=== PATIENT | female | born 1945 | race Caucasian/White ===

== ENCOUNTER → 2016-11-28 | Outpatient (CLI) | payer OTHER, MEDICARE ==
[~2016-11-28] MED LIST: ACET-1325 PO; ASPI-461 PO; CHOL100027 PO; DIAZ5TAB3 PO; LOSA25TA18 PO; LPT40 PO; MECL1TAB42 PO; OMEP20TA PO
[2016-11-28 12:31] LABS: ALT/SGPT 25 U/L (12-78); BLOOD UREA NITROGEN 17 mg/dl (7-18); BUN/CREATININE RATIO 22.8 (10-20); CALCIUM 8.9 mg/dl (8.5-10.1); CARBON DIOXIDE 23 mmol/L (21-32); CHLORIDE 112 mmol/L (98-107); CHOLESTEROL 166 mg/dl (0-200); CREATININE 0.75 mg/dl (0.60-1.20); GLUCOSE 92 mg/dl (70-99); POTASSIUM 3.9 mmol/L (3.5-5.1); SODIUM 145 mmol/L (136-145); TRIGLYCERIDES 181 mg/dl (0-150); VERY LOW DENSITY LIPOPROT CALC 36 mg/dl
[2016-11-28 12:40] LABS: ESTIMATED AVERAGE GLUCOSE 114 mg/dl; HA1C FLAG Normal (Normal)
[2016-11-28 12:41] LABS: ALB/GLOB RATIO 1.1 (0.9-2); ALKALINE PHOSPHATASE 55 U/L (45-117); AST/SGOT 18 U/L (15-37); HDL CHOLESTEROL 55 mg/dl; LDL CHOLESTEROL CALCULATED 75 mg/dl
== END | disposition home or self-care (01) ==
LOC: C.LAB1850 10:34
PROVIDERS: ATTEND Family Medicine
DX: I10 Essential (primary) hypertension (principal); E78.00 Pure hypercholesterolemia, unspecified; R73.01 Impaired fasting glucose; E55.9 Vitamin D deficiency, unspecified

== ENCOUNTER → 2017-05-30 | Outpatient (CLI) | payer OTHER, MEDICARE ==
[2017-05-30 12:42] LABS: ALT/SGPT 27 U/L (12-78); AST/SGOT 17 U/L (15-37); BLOOD UREA NITROGEN 13 mg/dl (7-18); BUN/CREATININE RATIO 17.3 (10-20); CALCIUM 8.5 mg/dl (8.5-10.1); CARBON DIOXIDE 24 mmol/L (21-32); CHLORIDE 113 mmol/L (98-107); CHOLESTEROL 132 mg/dl (0-200); CREATININE 0.73 mg/dl (0.60-1.20); GLUCOSE 89 mg/dl (70-99); POTASSIUM 3.9 mmol/L (3.5-5.1); SODIUM 142 mmol/L (136-145)
[2017-05-30 12:44] LABS: ALB/GLOB RATIO 0.9 (0.9-2); ALKALINE PHOSPHATASE 60 U/L (45-117); CHOLESTEROL/HDL RATIO 2.9; HDL CHOLESTEROL 46 mg/dl; LDL CHOLESTEROL CALCULATED 42 mg/dl; TRIGLYCERIDES 218 mg/dl (0-150); VERY LOW DENSITY LIPOPROT CALC 44 mg/dl
[2017-05-30 13:49] LABS: ESTIMATED AVERAGE GLUCOSE 123 mg/dl; HA1C FLAG Normal (Normal)
== END | disposition home or self-care (01) ==
LOC: C.LAB1850 11:13
PROVIDERS: ATTEND Family Medicine
DX: I10 Essential (primary) hypertension (principal); E78.00 Pure hypercholesterolemia, unspecified; R73.01 Impaired fasting glucose; E55.9 Vitamin D deficiency, unspecified

== ENCOUNTER → 2017-10-25 | Outpatient (CLI) | payer OTHER, MEDICARE ==
--- NOTE | 2017-10-26 15:33 | MAMMOGRAPHY REPORT ---
BILATERAL DIGITAL SCREENING MAMMOGRAM TOMOSYNTHESIS WITH CAD: 10/25/2017 CLINICAL HISTORY: Routine screening. TECHNIQUE: Breast tomosynthesis in addition to standard 2D mammography was performed. Current study was also evaluated with a Computer Aided Detection (CAD) system. COMPARISON: Comparison is made to exams dated: 10/02/2016 mammogram, 10/26/2015 mammogram, 5 mammogram - [facility], 12/19/2013 mammogram, 10/21/2012 mammogram, and 10/17/2012 mammogram. BREAST COMPOSITION: There are scattered areas of fibroglandular density in both breasts. FINDINGS: No suspicious masses, calcifications, or areas of architectural distortion are noted in ei ther breast. There has been no significant interval change compared to prior exams. Small circumscri bed benign-appearing masses are again noted bilaterally, with corresponding benign cysts seen on prio r ultrasound exam. IMPRESSION: ACR BI-RADS CATEGORY 2: BENIGN There is no mammographic evidence of malignancy. A 1 year screening mammogram is recommended. The pa tient will receive written notification of the results. Approximately 10% of breast cancers are not detected with mammography. A negative mammographic report should not delay biopsy if a clinically suggestive mass is present. Amanda Decker M.D. ah/:10/25/2017 16:00:02 Tractor Trailer Driver: Leslie ORTIZ(R)(M), [facility] letter sent: Normal 1/2 BI-RADS Code: ACR BI-RADS Category 2: Benign
== END | disposition home or self-care (01) ==
LOC: C.MAMM 13:33
PROVIDERS: ATTEND Family Medicine
DX: Z12.31 Encounter for screening mammogram for malignant neoplasm of breast (principal)

== ENCOUNTER → 2018-01-21 | Outpatient (CLI) | payer OTHER, MEDICARE ==
[2018-01-21 13:00] LABS: ALT/SGPT 25 U/L (12-78); BLOOD UREA NITROGEN 15 mg/dl (7-18); CALCIUM 8.7 mg/dl (8.5-10.1); CARBON DIOXIDE 23 mmol/L (21-32); CHOLESTEROL 136 mg/dl (0-200); GLUCOSE 95 mg/dl (70-99); HEMOGLOBIN A1C 5.7 % (4.5-5.6); POTASSIUM 4.3 mmol/L (3.5-5.1); SODIUM 141 mmol/L (136-145)
[2018-01-21 13:04] LABS: LDL CHOLESTEROL CALCULATED 62 mg/dl
== END | disposition home or self-care (01) ==
LOC: C.LAB1850 10:53
PROVIDERS: ATTEND Family Medicine
DX: I10 Essential (primary) hypertension (principal); E78.00 Pure hypercholesterolemia, unspecified; R73.01 Impaired fasting glucose

== ENCOUNTER → 2018-01-29 | Outpatient (CLI) | payer OTHER, MEDICARE ==
[2018-01-29 15:33] LABS: BASO % 0.4 %; BASO ABS # 0.03 K/uL (0-0.2); EOS % 1.3 %; HEMATOCRIT 40.4 % (37-47); HEMOGLOBIN 13.7 g/dL (12.0-16.0); IG# 0.01 K/uL (0.00-0.02); LYMPH % 29.5 %; LYMPH ABS # 2.25 K/uL (1.2-3.4); MEAN CELL VOLUME 91.2 fL (80-100); MEAN CORPUSCULAR HEMOGLOBIN 30.9 pg (25-34); MEAN CORPUSCULAR HGB CONC 33.9 g/dl (32-36); MEAN PLATELET VOLUME 11.3 fL (7.4-10.4); MONO ABS # 0.69 K/uL (0.11-0.59); NEUT % 59.7 %; NEUT ABS # 4.55 K/uL (1.4-6.5); PLATELET COUNT 233 K/uL (130-400); RED CELL DISTRIBUTION WIDTH CV 13.9 % (11.5-14.5); RED CELL DISTRIBUTION WIDTH SD 46.4 fL (36.4-46.3); WHITE BLOOD COUNT 7.63 K/uL (4.8-10.8)
== END | disposition home or self-care (01) ==
LOC: C.LAB1850 13:34
PROVIDERS: ATTEND Family Medicine
DX: H81.09 Meniere's disease, unspecified ear (principal)

== ENCOUNTER 2022-11-13 09:48 | Observation (INO) ==
--- NOTE | 2022-10-16 12:06 | PAT Medication Instructions ---
Medication Instructions Date of Service October 16, 2022 Home Medications Medication Instructions Recorded meclizine 25 mg tablet 25 mg PO TID PRN dizziness #30 tabs 07/01/21 diazepam 5 mg tablet 5 mg PO .every 12 hours PRN 01/23/22 vertigo #14 tabs acetazolamide 125 mg tablet 125 mg PO ONCE PRN cholecalciferol (vitamin D3) 25 mcg (1,000 unit) capsule 1,000 units PO QAM omeprazole 20 mg capsule,delayed release 20 mg PO QAM meclizine 25 mg tablet 25 mg PO TID PRN diazepam 5 mg tablet 5 mg PO .every 12 hours PRN atorvastatin 10 mg tablet 10 mg PO QPM calcium carbonate 200 mg calcium (500 mg) chewable tablet (Tums) 200 mg PO QID PRN ibuprofen 200 mg tablet 400 mg PO Q6H PRN acetaminophen 500 mg tablet 1,000 mg PO Q8H PRN minoxidil 2 % topical solution (Rogaine) 1 ml topical UD ASK your surgeon for instructions ibuprofen 200 mg tablet 400 mg PO Q6H PRN STOP taking 24 hours before surgery minoxidil 2 % topical solution (Rogaine) 1 ml topical UD DO NOT take the morning of surgery acetazolamide 125 mg tablet 125 mg PO ONCE PRN cholecalciferol (vitamin D3) 25 mcg (1,000 unit) capsule 1,000 units PO QAM calcium carbonate 200 mg calcium (500 mg) chewable tablet (Tums) 200 mg PO QID PRN Take morning of surgery With a small sip of water, OTHERWISE NOTHING TO EAT OR DRINK AFTER MIDNIGHT: omeprazole 20 mg capsule,delayed release 20 mg PO QAM meclizine 25 mg tablet 25 mg PO TID PRN(if needed) diazepam 5 mg tablet 5 mg PO .every 12 hours PRN(if needed) acetaminophen 500 mg tablet 1,000 mg PO Q8H PRN(if needed) Take evening before surgery meclizine 25 mg tablet 25 mg PO TID PRN(if needed) diazepam 5 mg tablet 5 mg PO .every 12 hours PRN(if needed) atorvastatin 10 mg tablet 10 mg PO QPM calcium carbonate 200 mg calcium (500 mg) chewable tablet (Tums) 200 mg PO QID PRN(if needed) acetaminophen 500 mg tablet 1,000 mg PO Q8H PRN(if needed) Other Notes If you have any questions please call us at [phone] or [phone] or [phone] or [phone]
--- NOTE | 2022-10-17 11:10 | Anesthesiology Consultation ---
Date of Service October 17, 2022 Assessment & Plan (1) Encounter for pre-operative examination: Chart Review Chart Review: Acceptable Risk for Surgery and Patient seen in Pre Admission Testing -Due to age- patient is NOT an Outpatient Joint candidate Per PAT appt on 10/17/22, patient denies any recent travel or large group activities. Pt is vaccinated for Covid. Will leave to surgeon's discretion if preop Covid testing needed. Educated on importance of using Covid precautions one week prior to surgery Teaching & Discussion Pre-Anesthesia Teaching/Discussion Notes: Instructed NPO after midnight before surgery,except medications with 15 cc of water. Medication instructions provided according to the [facility] guidelines. History Surgery Operation Date: 11/13/22 08:50 Proposed Procedures p Right Total Knee Arthroplasty - Cleveland Mondragon DO Height/Weight Height: 5 ft 6 in Weight: 91 kg Allergies Allergy/AdvReac Type Severity Reaction Status Date / Time No Known Drug Allergies Allergy Verified 10/16/22 14:11 Medications Home Medications Medication Instructions Recorded Confirmed Last Taken acetazolamide 125 mg tablet 125 mg PO ONCE PRN Vertigo 04/14/19 10/16/22 Unknown cholecalciferol (vitamin D3) 25 1,000 units PO QAM 04/14/19 10/16/22 10/08/22 mcg (1,000 unit) capsule meclizine 25 mg tablet 25 mg PO TID PRN dizziness #30 tabs 07/01/21 10/16/22 Unknown diazepam 5 mg tablet 5 mg PO .every 12 hours PRN 01/23/22 10/16/22 Unknown vertigo #14 tabs atorvastatin 10 mg tablet 10 mg PO QPM 10/04/22 10/16/22 10/08/22 calcium carbonate 200 mg calcium 200 mg PO QID PRN gerd 10/04/22 10/16/22 Unknown (500 mg) chewable tablet (Tums) ibuprofen 200 mg tablet 400 mg PO Q6H PRN Pain 10/04/22 10/16/22 Unknown acetaminophen 500 mg tablet 1,000 mg PO Q8H PRN Pain 10/16/22 10/16/22 Unknown minoxidil 2 % topical solution 1 ml topical UD 10/16/22 10/16/22 Unknown (Rogaine) omeprazole 20 mg capsule,delayed 20 mg PO QAM #30 caps 10/16/22 10/16/22 Unknown release Past Medical History Medical History Degenerative arthritis of cervical spine GERD (gastroesophageal reflux disease) Well controlled and stable Hiatal hernia History of hypertension Resolved per pt since retiring Hypercholesterolemia Impaired fasting glucose A1C 5.7 on June 2022 Meniere disease WITH VERTIGO- NO CURRENT ISSUES USUALLY TRIGGERED BY CAFFEINE Osteopenia Sensorineural hearing loss (SNHL) of both ears No hearing aids at this time Exercise / Class Metabolic Activity III < 4 Walking/Shop/Light housework (one flight of stairs- no chest pain, minimal SOB ) Past Family History Family History Other No family history of adverse response to anesthesia Denies family history of Colon cancer Ovarian cancer Prostate cancer Myocardial infarction Breast cancer Past Surgical History Surgical History History of cataract surgery RT/LEFT History of colonoscopy History of esophagogastroduodenoscopy (EGD) History of loop electrosurgical excision procedure (LEEP) of cervix History of surgical removal of pilonidal cyst x 2 History of tonsillectomy History of tooth extraction PONV (postoperative nausea and vomiting) Past Anesthesia History No Hx of Anesthesia Complications (with exception to postoperative nausea) and No Family Hx of Anesthesia Complications History of PONV History of PONV (Nausea- no vomiting - tolerated EGD and dental extraction without issues ) and Hx of Motion Sickness Social History Smoking Status: Former smoker tobacco type: cigarettes Smoking End Date: 50+ YEARS AGO Hx Alcohol Use: Yes Alcohol type: wine and hard liquor alcohol intake frequency: a few times a week substance use type: does not use Review of Systems Sleeps alone- unknown snoring Patient denies chest pain, shortness of breath at rest,cough, wheezing, palpitations. No hx of seizures, stroke, CT. No hx of blood clots or blood transfusions Physical Exam Vital Signs VITALS BP 144/84 P 67 TEMP 98.2 SP02 97% RESP 16 Constitutional no acute distress ENMT Mouth: + small oral opening; no TMJ clicking Thyromental Distance: < 3.5 Finger Breadths (3.5) Mallampati Class: III Missing molars Permanent bridges to bottom side teeth bilaterally Neck + limited neck extension (mild to moderate ) Respiratory normal respiratory effort; no respiratory distress Auscultation: lungs clear to auscultation bilaterally; no wheezes Cardiovascular Rate/Rhythm: regular rate and regular rhythm Heart Sounds: no murmur Vessels: no carotid bruit Musculoskeletal Spine: + pain with cervical ROM Extremities: extremities normal to inspection Psychiatric Orientation: alert Lab Results Anesthesia Preop Results Results Anesthesia Widget: WBC 7.18 K/ul (4.8-10.8) 10/17/22 Hgb 12.0 g/dl (12.0-16.0) 10/17/22 Hct 36.7 % (34.1-44.9) 10/17/22 Plt 227 K/uL (130-400) 10/17/22 Na 139 mmol/L (136-145) 10/17/22 K 4.2 mmol/L (3.5-5.1) 10/17/22 Cl 108 mmol/L (98-107) H 10/17/22 CO2 25 mmol/L (21-32) 10/17/22 BUN 15 mg/dl (6-23) 10/17/22 Creat 0.64 mg/dl (0.6-1.2) 10/17/22 Glucose Level 95 mg/dl (70-99(Fasting)) 10/17/22 PT 10.5 Seconds (9.0-12.0) 10/17/22 PTT 25.4 Seconds (21.0-31.0) 10/17/22 INR 1.0 (0.9-1.1) 10/17/22 Blood Type A Positive 10/17/22 Antibody Screen NEGATIVE 10/17/22 Testing Electrocardiogram Date: 10/17/22 Findings: + NSR @ (67bpm ) Left ventricular hypertrophy with QRS widening Possible septal infarct Possible old lateral infarct Chronic T wave inversion in inferior and anterolateral leads When compared to EKG from December 03, 2014no significant changes from prior cardio (Had negative stress ECHO 12/03/14 for ischemia) Chest X-Ray Date: 10/17/22 FINDINGS: PA and lateral chest radiographs are compared to study dated 12/02/2014. The heart is mildly enlarged noting atherosclerotic calcification of the thoracic aorta. The pulmonary vasculature is noncongested. Chronic interstitial thickening is similar to previous. The lungs and pleural spaces are clear. There is no pneumothorax. The skeletal structures are osteopenic. The bony thorax appears intact. IMPRESSION: Mild cardiomegaly with no active disease in the chest. COVID-19 Risk Screen Screening Information COVID-19 Screen Date: 10/17/22 Exposure 21 Days Family/Household +COVID Last 21 Days: No Exposure 10 Days Any COVID Exposure Last 10 Days: No Symptoms Last 10 Days Experienced COVID Sx Last 10 Days: No + COVID 0-90 Days COVID + in Last 0-90 Days: No Risk Plan COVID Risk Plan: No Risk Identified Patient Education COVID Preop Screening Education Complete: Yes
[~2022-11-13 09:48] MED LIST changes: -ACET-1325 PO; +ACETAMINOPHEN 500 MG TAB PO SCH; -ASPI-461 PO; +BUPIVACAINE 0.25% 30 ML VIAL ONE; +BUPIVACAINE 0.5 % 5 MG/1 ML PF 10ML VIAL ONE; -CHOL100027 PO; +DEXAMETHASONE SOD INJ 4 MG/ML VIAL ONE; -DIAZ5TAB3 PO; +EPINEPHrine INJ 1 MG/ML AMP ONE; +FAMOTIDINE 20 MG TAB PO SCH; +GABAPENTIN 300 MG CAP PO SCH; -LOSA25TA18 PO; -LPT40 PO; +LR 500ML BOLUS, THEN 15ML/HR IV SCH; +LR 60ML/HR IV SCH; -MECL1TAB42 PO; -OMEP20TA PO; +ORTHO JOINT MIX INFIL SCH; +TRANEXAMIC ACID 1,000 MG **IV Intra-op IV SCH; +TRANEXAMIC ACID 1,000 MG **IV Pre-op IV SCH; +ceFAZolin 2000MG 2,000 MG/15 ML SYR IV SCH; +dexAMETHasone 4 MG TAB PO SCH
--- NOTE | 2022-11-13 10:37 | History & Physical Bridge Note ---
Date of Service November 13, 2022 History & Physical Bridge Note I have examined the patient, reviewed the History & Physical and in the interval since the performance of the History & Physical I have noted the following changes of clinical significance: no changes noted
[2022-11-13] MEDS ORDERED: ORTHO JOINT ANESTHETIC ONE (11:36)
[2022-11-13] MEDS ORDERED: fentaNYL citrate 100 MCG/2 ML VIAL ONE (11:38)
[2022-11-13] MEDS ORDERED: MIDAZOLAM HCL 1 MG/ML 2ML VIAL ONE (11:38)
[2022-11-13] MEDS ORDERED: PROPOFOL IV EMULSION 10 MG/ML 20 ML VIAL IV ONE ×2 (11:40)
[2022-11-13] MEDS ORDERED: ATROPINE SULFATE 0.1 MG/ML 10ML SYR IV PRN (12:34)
[2022-11-13] MEDS ORDERED: ePHEDrine sulfate 50 MG/ML AMP IV PRN (12:34)
[2022-11-13] MEDS ORDERED: fentaNYL citrate 100 MCG/2 ML VIAL IV PRN (12:34)
[2022-11-13] MEDS ORDERED: ONDANSETRON INJ 2 MG/ML 2 ML VIAL IV PRN ×2 (12:34→16:17)
[2022-11-13] MEDS ORDERED: ONDANSETRON INJ 2 MG/ML 2 ML VIAL ONE (12:37)
[2022-11-13] MEDS ORDERED: METOPROLOL TARTRATE 1 MG/ML VIAL IV ONE (12:46)
[2022-11-13] MEDS ORDERED: LIDOCAINE 2% MPF LOCAL 5 ML VIAL INFIL ONE (12:58)
--- NOTE | 2022-11-13 13:51 | Operative Report ---
PG Post Operative Report Pre & Post Diagnosis Operation Date: 11/13/22 12:30 Pre-Op Diagnosis: Osteoarthritis of Right Knee Post-Op Diagnosis: Osteoarthritis of Right Knee I identified the patient and participated in the time-out.: Yes Procedure Operation Date: 11/13/22 12:30 Actual Procedures p Right Total Knee Arthroplasty(Right) - Cleveland Mondragon DO Surgeon Cleveland Mondragon DO Help Desk Specialist Cleveland Arambula PA-C Estimated Blood Loss 30 Findings Consistent with Post-Op Diagnosis Specimens Right femoral and tibial bone Description of Procedure Implants used: I used a Jackie Persona total knee arthroplasty system with a size 8 standard femur, E tibia, 31 oval patella, and a size 10 medial congruent polyethylene bearing. All components were cemented in place with Biomet cement. Anuradha arrived [facility] for the above procedure. She was seen in the preoperative holding area and the operative extremity was identified and signed. She was given a preoperative antibiotic, TXA, a spinal anesthetic and an adductor nerve block. She was taken back to the operating room and laid on the table in supine position. She was given basic sedation. The operative knee was then prepped and draped in sterile fashion. A timeout was done, and the patient and the operative extremity was properly identified. A midline incision was made directly over the patella. Dissection was taken down to the extensor mechanism. A midvastus arthrotomy was used. The medial retinaculum was released and the fat pad was mostly excised. The knee was flexed and the ACL, PCL, and meniscus were removed. A drill was sent down the center of the femoral canal followed by an intramedullary rachel. Off that rachel a distal femoral cutting block was placed. 9 mm was resected off the distal femur at 5 of valgus. A posterior referencing AP sizing guide was then placed on the distal femur. The femur measured to be a size 8. 2 drill holes were placed in 3 of external rotation. A 4-in-1 cutting block was then impacted into place. Anterior, posterior, and chamfer cuts were then made. The proximal tibia was then exposed. An external tibial alignment guide was placed. A tibial cut guide was then anchored in place and the proximal tibia was then resected. The posterior aspect of the knee was then opened up and any additional meniscus fragments and osteophytes were removed. The tibia measured to be a size 8. The tibial plate was then placed in the appropriate rotation and the tibia was drilled and punched. Trial components were then placed. I used a size 10 medial congruent polyethylene insert. The knee was brought through a full range of motion and felt to be stable. The peg holes for the femoral component were then drilled. The patella was then everted and 9 mm was resected off the posterior aspect of the patella. The patella measured to be a size 31 oval. 3 peg holes were then drilled. A trial patella was placed. The knee was once again brought through a full range of motion and felt to be stable. Trial components were then removed. The surrounding soft tissues were injected with 100 cc of an orthopedic pain control cocktail. All components were then cemented into place with Biomet cement. The final polyethylene insert was then snapped into place. Once cement was dry the tourniquet was deflated. Hemostasis was obtained. A dilute betadyne lavage was then done for 3 minutes. The joint was then irrigated with normal saline solution. The subvastus arthrotomy was then closed with #1 Vicryl suture. The skin was closed with 2-0 Vicryl, 3-0V lock suture, and lois. A soft compressive dressing was placed. She was then transferred to a hospital bed and taken to the postanesthesia care unit in stable condition. She tolerated the procedure well. Cleveland Arambula PA-C, was present for the entire procedure. He was critical for patient positioning, prepping, draping, retraction exposure, wound closure and application of sterile dressing. I attest to the content of the Intraoperative Record and any orders documented therein. Any exceptions are noted below.
--- NOTE | 2022-11-13 14:52 | Anesthesiology Progress Note ---
Date of Service November 13, 2022 Anesthesia Post Procedure Vital Signs Vital Signs: Temp Pulse Pulse Resp BP Pulse Ox O2 Del Method 11/13/22 14:35 62 17 117/73 93 Oxymask 11/13/22 14:25 65 17 104/65 88 L Oxymask 11/13/22 14:45 61 17 117/72 90 Oxymask 11/13/22 14:15 68 19 108/68 93 Oxymask 11/13/22 14:08 36.3 C L 92 H 18 115/62 92 Oxymask 11/13/22 10:26 36.7 C 83 18 169/98 H 96 Room Air O2 Flow Rate 11/13/22 14:35 5 11/13/22 14:25 6 11/13/22 14:45 5 11/13/22 14:15 6 11/13/22 14:08 6 11/13/22 10:26 Transfer of Care Handoff Completed per policy Notes Mental Status: alert / awake / arousable and participated in evaluation Patient Amnestic to Procedure: Yes Nausea / Vomiting: adequately controlled Pain: adequately controlled Airway Patency, RR, SpO2: stable & adequate BP & HR: stable & adequate Hydration State: stable & adequate Neuraxial Anesthesia: was administered and sensory block is resolving Anesthetic Complications: no major complications apparent and Pt Satisfied with anesthetic care
--- NOTE | 2022-11-13 14:59 | XRay Report ---
RIGHT KNEE 2 VIEWS History: Right total knee arthroplasty. Degenerative arthritis. Postop. FINDINGS: The patient is status post a right total knee arthroplasty. The hardware is intact. No frac ture or dislocation. Skin lois are in place. IMPRESSION: Right total knee arthroplasty. No evidence for hardware complication. ACT 112: Negative or not required by law. Electronically signed by: Liborio Handy M.D. 11/13/2022 2:58 PM
[2022-11-13] MEDS ORDERED: diazePAM 5 MG TABLET PO PRN (16:17)
[2022-11-13] MEDS ORDERED: MAGNESIUM HYDROXIDE SUSP 30 ML UDC PO PRN (16:17)
[2022-11-13] MEDS ORDERED: bisacodyL 10 MG SUPP PR PRN (16:17)
[2022-11-13] MEDS ORDERED: oxyCODONE HCL IR 5 MG TAB (IMMEDIATE RELEASE) PO PRN (16:17)
[2022-11-13] MEDS ORDERED: MECLIZINE HCL 25 MG TAB PO PRN (16:17)
[2022-11-13] MEDS ORDERED: MINOXIDIL TOP SCH (16:17)
[2022-11-13] MEDS ORDERED: METOCLOPRAMIDE HCL INJ 5 MG/ML 2 ML VIAL IV PRN (16:17)
[2022-11-13] MEDS ORDERED: SODIUM CHLORIDE 0.9% 1000ML 1,000 ML IV SCH (16:17)
[2022-11-13] MEDS ORDERED: NALOXONE HCL 0.4 MG/1 ML VIAL/CARP IV PRN (16:17)
[2022-11-13] MEDS ORDERED: HYDROmorphone INJ 0.5 MG/0.5 ML SYR IV PRN (16:17)
[2022-11-13] MEDS ORDERED: acetaZOLAMIDE 250 MG TAB PO PRN (16:29)
[2022-11-13] MEDS: KETOROLAC TROMETHAMINE 15 MG/ML VIAL IV SCH ×2 (16:59→23:01)
[2022-11-13] MEDS ORDERED: ATORVASTATIN 10 MG TAB PO SCH (21:00)
[2022-11-13] MEDS ORDERED: SENNA 8.6 MG TAB PO SCH (21:00)
[2022-11-13] MEDS: DOCUSATE SODIUM 100 MG CAP PO SCH (21:14)
[2022-11-13] MEDS: ACETAMINOPHEN 500 MG TAB PO SCH (21:19)
[2022-11-13] MEDS: ASPIRIN 81 MG ECTAB PO SCH (21:20)
[2022-11-13] MEDS: ceFAZolin 2000MG 2,000 MG/15 ML SYR IV SCH (21:20)
[2022-11-14] MEDS: ceFAZolin 2000MG 2,000 MG/15 ML SYR IV SCH (04:04)
[2022-11-14] MEDS: KETOROLAC TROMETHAMINE 15 MG/ML VIAL IV SCH (04:05)
[2022-11-14] MEDS: ACETAMINOPHEN 500 MG TAB PO SCH (05:41)
--- NOTE | 2022-11-14 07:12 | Orthopedic Progress Note ---
Date of Service November 14, 2022 Assessment & Plan (1) Status post right knee replacement: Overall she is doing very well. She is not having much pain in the right knee. She will be seen by physical therapy today for ambulation and range of motion exercises. She is on aspirin for DVT prophylaxis. She can be discharged home later today. She will follow-up with orthopedics in 2 weeks. Clovis Ling was seen and examined at bedside this morning. Overall she is doing very well. She is not having any pain in the right knee. She has been up and ambulating to the bathroom. She has no complaints.. Review of Systems All systems reviewed & are unremarkable except as noted in HPI & below. Physical Exam On physical examination of the right knee, her leg is out full extension. She has active dorsiflexion plantarflexion of her right ankle. Sensation is intact throughout.. Results & Data Results & Data Laboratory Results . Diagnostic Findings Postoperative x-rays of the right knee show the prosthesis to be in anatomic alignment without any evidence of fracture, desiccation, or loosening. PG Care Time/CCT Total # of Minutes Spent Total Time Spent with Patient: Total time spent is greater than 50% in coordination of care (as documented) at patient's floor/unit and/or counseling patient: Coding Level of Care Code 72307 Post Operative Follow-Up Diagnoses Status post right knee replacement Z96.651
--- NOTE | 2022-11-14 07:13 | Discharge Summary ---
Date of Service November 14, 2022 Principal Diagnosis Same as "Discharge Diagnosis" noted below under Discharge Instructions. Discharge Exam On physical examination of the right knee, her leg is out full extension. She has active dorsiflexion plantarflexion of her right ankle. Sensation is intact throughout.. Discharge Data Procedures Performed Operation Date: 11/13/22 12:30 Actual Procedures p Right Total Knee Arthroplasty(Right) - Cleveland Mondragon DO Ordered Studies 11/13/22 05:00 US - OR guided needle placemen Routine Hospital Course (1) Status post right knee replacement: On November 13, 2022 Anuradha arrived at [facility] and underwent a right knee replacement without complication. She had a spinal anesthetic. Postoperatively she was started on aspirin for DVT prophylaxis and transferred to the general orthopedic floors. Her hospital course was uneventful. On postop day #1, her vital signs were stable and her pain was well controlled. She was able to participate well with physical therapy doing ambulation and range of motion exercises. She was then discharged home. She will follow-up with orthopedics in 2 weeks. PG Care Time/CCT Total # of Minutes Spent Total Time Spent with Patient: Total time spent is greater than 50% in coordination of care (as documented) at patient's floor/unit and/or counseling patient: Discharge Plan Discharge Items Patient Disposition: Home - Home Health Services Reason For Visit: DJD Right Knee Discharge Diagnosis: Right knee replacement Activity: Per Instructions section Non-emergency contact: Surgeon Call non-emergency contact if: your wound has increased redness and your wound has increased drainage Follow-up/Referrals: Renee Becerra MD [Primary Care Provider] - Diet: Regular Addtl Attending Provider Instructions: Activity and Therapy Recommendations: * If you are using [facility] then therapy will be provided at your home until they feel you have accomplished all of your goals. * If you are using [facility] then Physical Therapy will be provided until they feel you are ready to start Outpatient Physical Therapy. * If you are not using home therapy then Outpatient Physical Therapy should start about 3-5 days from your day of surgery. Therapy will last about 6-10 weeks * It is important not to put a pillow under your knee when you are relaxing or sleeping. It is just as important to make sure you are getting your knee perfectly straight as it is to regain your knee bend. * You were shown a series of exercises in the hospital. Do these exercises three times each day including the exercises you were shown in physical therapy. * Get up and walk several times each day. For the first four weeks, try not to stand or walk for more than one hour at a time. If you do stand or walk for more than one hour, you will not hurt anything, but your leg will likely swell. * As you feel comfortable, you may change from the walker or crutches to a cane and then to independent walking. Medications: * Narcotic You will likely be sent home from the hospital with a prescription for the narcotic pain medication that worked best throughout your stay. * Aspirin Most patients will be required to take Aspirin 81mg twice a day for 6 weeks after surgery. This is obtained [id number] and a prescription is not necessary. * Other medications may be prescribed for specific circumstances. If you have any questions, please call the office at . * Resume previous home medications unless otherwise instructed TEDs/Elastic Stockings: The white elastic stockings help limit swelling and prevent blood clots from fo rming in your legs.~ The more you wear them, the more they work. Wear them for six weeks. Dressing Care: The dressing can be changed after physical therapy on postop day #1. Daily dry dressing changes for a few days, especially if the incision is still draining some. If the incision is not draining then you may leave the lois open to air. If there is a little bit of drainage or if the lois are getting stuck on your clothing then cover the incision with a dry dressing. The lois will be removed at your 2 week follow-up appointment. Showering: You may shower 5 days from the day of surgery as long as the incision is no longer draining. You may shower with the lois exposed. Let soapy water run over the lois and pat them dry. Do not scrub or soak the incision. Things To Watch For: * Drainage from the incision site that occurs more than one week after your surgery. * Increased redness at the incision site. * Fever above 102 degrees Fahrenheit. * Unusual chest pain or shortness of breath. * Call [facility] at with any of the above problems Follow-Up Visit: Follow-up with Dr. Mondragon's PA (Cleveland Arambula) 2-3 weeks after your day of surgery. He will remove your lois and answer any questions. If you have any additional questions or concerns, Dr Mondragon is usually in the office at the same time and will be available An appointment was probably scheduled when you signed-up for surgery in the office. If you have any questions call Office Instructions: More detailed instructions as well as Frequently Asked Questions were provided in a folder by our office when you signed-up for surgery. Please review these instructions when you get home. If you have any further questions or concerns, please feel free to call the office at [phone] Pending Studies at Discharge: No Stand-Alone Forms: My [facility] Medications and DC Order Prescriptions: New oxycodone-acetaminophen 5-325 mg tablet 1 tab PO Q6H PRN (Reason: pain) Qty: 30 0RF celecoxib [Celebrex] 200 mg capsule 200 mg PO BID Qty: 28 0RF Rx Instructions: Take 1 pill twice a day for 2 weeks after surgery aspirin [Adult Aspirin Regimen] 81 mg tablet,delayed release (DR/EC) 81 mg PO BID Qty: 84 0RF Continued diazepam 5 mg tablet 5 mg PO .every 12 hours PRN (Reason: vertigo ) Qty: 14 1RF acetazolamide 125 mg tablet 125 mg PO ONCE PRN (Reason: Vertigo) cholecalciferol (vitamin D3) 1,000 unit capsule 1,000 units PO QAM omeprazole 20 mg capsule,delayed release(DR/EC) 20 mg PO QAM Qty: 30 11RF meclizine 25 mg tablet 25 mg PO TID PRN (Reason: dizziness) Qty: 30 1RF acetaminophen 500 mg Tablet 1,000 mg PO Q8H PRN (Reason: Pain) minoxidil [Rogaine] 2 % Solution 1 ml TOPICAL UD atorvastatin 10 mg tablet 10 mg PO QPM calcium carbonate [Tums] 200 mg calcium (500 mg) Tablet,Chewable 200 mg PO QID PRN (Reason: gerd) Discontinued ibuprofen 200 mg Tablet 400 mg PO Q6H PRN (Reason: Pain) Discharge Orders: Discharge Order (Routine); Ordered 11/14/22 Ordered By: Cleveland Mondragon Admission Data Admit Date/Time: 11/13/22 14:12 Attending Provider: Cleveland Mondragon Admit Provider: Cleveland Mondragon Primary Care Provider: Renee Becerra
[2022-11-14] MEDS ORDERED: dexAMETHasone 4 MG TAB PO SCH (08:00)
[2022-11-14] MEDS: DOCUSATE SODIUM 100 MG CAP PO SCH (08:38)
[2022-11-14] MEDS: ASPIRIN 81 MG ECTAB PO SCH (08:38)
[2022-11-14] MEDS ORDERED: PANTOprazole 40 MG TAB PO SCH (09:00)
[2022-11-14] MEDS ORDERED: MULTIVITAMIN TAB PO SCH (09:00)
== END 2022-11-14 11:04 | disposition home health service (06) ==
LOC: ASU 09:48 → 3N 09:48

== ENCOUNTER 2023-03-12 05:21 | Observation (INO) ==
--- NOTE | 2023-03-01 13:45 | Anesthesiology Consultation ---
Date of Service March 01, 2023 Assessment & Plan (1) Encounter for pre-operative examination: - COVID screening: Per assessment on 03/01: No known COVID-19 positive contacts or current COVID-19 related symptoms. Travel screen negative. Patient vaccinated. At surgeon discretion if preop Covid testing being done. - Outpatient joint assessment: Pt currently scheduled for inpatient pathway. If surgeon requests review for outpatient joint pathway, patient is not recommended candidate for outpatient joint program from anesthesia standpoint. - S/P Right TKA (11/13/22): SAB at L3/4 (x1 attempt) + PNB at [facility] Chart Review Chart Review: Acceptable Risk for Surgery and Patient NOT seen in Pre Admission Testing History Surgery Operation Date: 03/12/23 08:50 Proposed Procedures p Left Total Knee Arthroplasty - Cleveland Mondragon DO Height/Weight Height: 5 ft 6 in Weight: 88.904 kg Allergies Allergy/AdvReac Type Severity Reaction Status Date / Time No Known Allergies Allergy Verified 03/01/23 13:01 Medications Home Medications Medication Instructions Recorded Confirmed Last Taken acetazolamide 125 mg tablet 125 mg PO UD PRN Vertigo 04/14/19 03/01/23 Unknown cholecalciferol (vitamin D3) 25 1,000 units PO QAM 04/14/19 03/01/23 11/10/22 09:00 mcg (1,000 unit) capsule calcium carbonate 200 mg calcium 200 mg PO QID PRN gerd 10/04/22 03/01/23 10/30/22 (500 mg) chewable tablet (Tums) acetaminophen 500 mg tablet 1,000 mg PO Q8H PRN Pain 10/16/22 03/01/23 10/30/22 minoxidil 2 % topical solution 1 ml topical QAM 10/16/22 03/01/23 11/11/22 08:00 (Rogaine) omeprazole 20 mg capsule,delayed 20 mg PO QAM #30 caps 10/16/22 03/01/23 11/13/22 07:45 release amoxicillin 500 mg tablet 2,000 mg PO UD PRN PRIOR TO DENTAL 03/01/23 03/01/23 Unknown atorvastatin 10 mg tablet 10 mg PO QPM 03/01/23 03/01/23 Unknown diazepam 5 mg tablet 5 mg PO UD PRN vertigo 03/01/23 03/01/23 Unknown meclizine 25 mg tablet 25 mg PO UD PRN dizziness 03/01/23 03/01/23 Unknown oxycodone-acetaminophen 5 mg-325 1 tab PO UD PRN Pain 03/01/23 03/01/23 Unknown mg tablet Past Medical History Medical History Degenerative arthritis of cervical spine GERD (gastroesophageal reflux disease) Well controlled, stable Hiatal hernia History of hypertension "Resolved" since retiring per patient Hypercholesterolemia Impaired fasting glucose A1C 5.7 on 06/2022 Meniere disease + vertigo, no current issues, hx caffeine triggers Osteopenia Sensorineural hearing loss (SNHL) of both ears Past Family History Family History Other No family history of adverse response to anesthesia Denies family history of Colon cancer Ovarian cancer Prostate cancer Myocardial infarction Breast cancer Past Surgical History Surgical History History of arthroplasty of right knee Right TKA (11/13/22): SAB at L3/4 (x1 attempt) + PNB at [facility] History of cataract surgery RT/LEFT History of colonoscopy History of esophagogastroduodenoscopy (EGD) History of loop electrosurgical excision procedure (LEEP) of cervix History of surgical removal of pilonidal cyst x 2 History of tonsillectomy History of tooth extraction PONV (postoperative nausea and vomiting) Social History Smoking Status: Former smoker tobacco type: cigarettes Do You Dip or Chew Tobacco: No Smoking End Date: AGE 19'S Hx Alcohol Use: Yes Alcohol type: wine and hard liquor alcohol intake frequency: holidays/special occasions only Hx Substance Use: No substance use type: does not use Lab Results Anesthesia Preop Results Results Anesthesia Widget: WBC 7.55 K/ul (4.8-10.8) 02/07/23 Hgb 12.6 g/dl (12.0-16.0) 02/07/23 Hct 38.6 % (37.0-47.0) 02/07/23 Plt 248 K/uL (130-400) 02/07/23 Na 139 mmol/L (136-145) 02/07/23 K 4.0 mmol/L (3.5-5.1) 02/07/23 Cl 108 mmol/L (98-107) H 02/07/23 CO2 25 mmol/L (21-32) 02/07/23 BUN 13 mg/dl (6-23) 02/07/23 Creat 0.71 mg/dl (0.6-1.2) 02/07/23 Glucose Level 99 mg/dl (70-99(Fasting)) 02/07/23 PT 10.4 Seconds (9.0-12.0) 02/07/23 PTT 25.7 Seconds (21.0-31.0) 02/07/23 INR 1.0 (0.9-1.1) 02/07/23 Blood Type A Positive 02/07/23 Antibody Screen NEGATIVE 02/07/23 Testing Electrocardiogram Date: 10/17/22 Findings: + NSR @ (67bpm ) Left ventricular hypertrophy with QRS widening Possible septal infarct Possible old lateral infarct Chronic T wave inversion in inferior and anterolateral leads When compared to EKG from December 03, 2014no significant changes from prior cardio (Had negative stress ECHO 12/03/14 for ischemia) Chest X-Ray Date: 10/17/22 FINDINGS: PA and lateral chest radiographs are compared to study dated 12/02/2014. The heart is mildly enlarged noting atherosclerotic calcification of the thoracic aorta. The pulmonary vasculature is noncongested. Chronic interstitial thickening is similar to previous. The lungs and pleural spaces are clear. There is no pneumothorax. The skeletal structures are osteopenic. The bony thorax appears intact. IMPRESSION: Mild cardiomegaly with no active disease in the chest.
--- NOTE | 2023-03-08 13:32 | History & Physical Report ---
Date of Service March 08, 2023 Assessment & Plan (1) Osteoarthritis of left knee: We will proceed with a left total knee arthroplasty. Postoperatively she will be started on aspirin for DVT prophylaxis and kept overnight in the hospital for postop medical management. [facility]. History of Present Illness Chief Complaint: Osteoarthritis of the left knee. Primary Care Provider: Renee Becerra MD Anuradha is a pleasant 77-year-old female who I just did a right knee replacement on several months ago. She is done very well with that. Unfortunately she is dealing with left knee pain. X-rays and clinical examination are diagnostic for advanced osteoarthritis of the left knee. After failing conservative treatment, she has elected proceed with a left total knee arthroplasty.. Allergies Allergy/AdvReac Type Severity Reaction Status Date / Time No Known Allergies Allergy Verified 03/01/23 13:01 Home Medications Medication Instructions Recorded Confirmed Type acetazolamide 125 mg tablet 125 mg PO UD PRN Vertigo 04/14/19 03/01/23 History cholecalciferol (vitamin D3) 25 1,000 units PO QAM 04/14/19 03/01/23 History mcg (1,000 unit) capsule calcium carbonate 200 mg calcium 200 mg PO QID PRN gerd 10/04/22 03/01/23 History (500 mg) chewable tablet (Tums) acetaminophen 500 mg tablet 1,000 mg PO Q8H PRN Pain 10/16/22 03/01/23 History minoxidil 2 % topical solution 1 ml topical QAM 10/16/22 03/01/23 History (Rogaine) omeprazole 20 mg capsule,delayed 20 mg PO QAM #30 caps 10/16/22 03/01/23 Rx release amoxicillin 500 mg tablet 2,000 mg PO UD PRN PRIOR TO DENTAL 03/01/23 03/01/23 History atorvastatin 10 mg tablet 10 mg PO QPM 03/01/23 03/01/23 History diazepam 5 mg tablet 5 mg PO UD PRN vertigo 03/01/23 03/01/23 History meclizine 25 mg tablet 25 mg PO UD PRN dizziness 03/01/23 03/01/23 History oxycodone-acetaminophen 5 mg-325 1 tab PO UD PRN Pain 03/01/23 03/01/23 History mg tablet Past Med/Surg History Medical History Degenerative arthritis of cervical spine GERD (gastroesophageal reflux disease) Well controlled, stable Hiatal hernia History of hypertension "Resolved" since retiring per patient Hypercholesterolemia Impaired fasting glucose A1C 5.7 on 06/2022 Meniere disease + vertigo, no current issues, hx caffeine triggers Osteopenia Sensorineural hearing loss (SNHL) of both ears Surgical History History of arthroplasty of right knee Right TKA (11/13/22): SAB at L3/4 (x1 attempt) + PNB at [facility] History of cataract surgery RT/LEFT History of colonoscopy History of esophagogastroduodenoscopy (EGD) History of loop electrosurgical excision procedure (LEEP) of cervix History of surgical removal of pilonidal cyst x 2 History of tonsillectomy History of tooth extraction PONV (postoperative nausea and vomiting) Family History Other No family history of adverse response to anesthesia Denies family history of Colon cancer Ovarian cancer Prostate cancer Myocardial infarction Breast cancer Social History Smoking Status: Former smoker Second Hand Exposure: Yes (IN THE PAST); Do You Dip or Chew Tobacco: No; Hx Alcohol Use: Yes Alcohol type: wine and hard liquor Hx Substance Use: No Preferred Language: Chilean Communication Ability: Effective Visual Impairment: No Limitations Hearing Ability: Normal Rat Culturist Required: No Beliefs That Will Affect Care: Rastafari Rastafari Beliefs: CHRISTIAN marital status: Current Living Situation: Alone current occupational status: retired Feels Safe at Home: Yes Childhood Exposure to Second-Hand Smoke: Yes Diet: regular Diet Comment: regular caffeine: No Dental Care, Regularly: Yes Physical Activity Frequency: 1-2 Times per Week Physical Activity Frequency Comment: walking Seatbelt Use: always Sunscreen Use: Yes Assistive Devices: Glasses Review of Systems All systems reviewed & are unremarkable except as noted in HPI & below. Physical Exam Physical examination of the left knee shows a slight varus deformity. He has tenderness palpation of the distal medial femoral condyle and over the medial joint line.. Constitutional WD/WN, vitals as above Eyes PERRL, conjunctivae normal, anicteric sclerae ENMT external ear and nose normal, oropharynx normal Neck trachea midline, no thyromegaly Respiratory normal respiratory effort, lungs clear to auscultation Cardiovascular RRR, no murmur, no edema Gastrointestinal (Abdomen) normal bowel sounds, soft, nontender, no hepatosplenomegaly Skin no rashes, warm and dry Psychiatric A+Ox3, euthymic affect Results & Data Results & Data Laboratory Results . Diagnostic Findings X-rays of the left knee show advanced osteoarthritis with joint space narrowing, osteophyte formation, and [id number] articulation. PG Care Time/CCT Total # of Minutes Spent Total Time Spent with Patient: Total time spent is greater than 50% in coordination of care (as documented) at patient's floor/unit and/or counseling patient: Coding Level of Care Code None Diagnoses Osteoarthritis of left knee M17.12
[2023-03-12] MEDS ORDERED: ORTHO JOINT MIX INFIL SCH (06:00)
[2023-03-12] MEDS ORDERED: ceFAZolin 2000MG 2,000 MG/15 ML SYR IV SCH (06:00)
[2023-03-12] MEDS ORDERED: GABAPENTIN 300 MG CAP PO SCH (06:00)
[2023-03-12] MEDS ORDERED: LR 500ML BOLUS, THEN 15ML/HR IV SCH (06:00)
[2023-03-12] MEDS ORDERED: LR 60ML/HR IV SCH (06:00)
[2023-03-12] MEDS ORDERED: FAMOTIDINE 20 MG TAB PO SCH (06:00)
[2023-03-12] MEDS ORDERED: ACETAMINOPHEN 500 MG TAB PO SCH (06:00)
[2023-03-12] MEDS ORDERED: dexAMETHasone 4 MG TAB PO SCH (06:00)
[2023-03-12] MEDS ORDERED: TRANEXAMIC ACID 1,000 MG **IV Pre-op IV SCH (06:00)
[2023-03-12] MEDS ORDERED: BUPIVACAINE 0.5 % 5 MG/1 ML PF 10ML VIAL ONE (06:23)
[2023-03-12] MEDS ORDERED: ROPIVACAINE 0.5% 5 MG/ML 30 ML VIAL ONE (06:23)
[2023-03-12] MEDS ORDERED: PROPOFOL IV EMULSION 10 MG/ML 20 ML VIAL IV ONE (06:36)
[2023-03-12] MEDS ORDERED: LIDOCAINE 2% 2 ML VIAL/AMP(20MG/ML) INFIL ONE (06:36)
[2023-03-12] MEDS ORDERED: MIDAZOLAM HCL 1 MG/ML 2ML VIAL ONE (06:37)
[2023-03-12] MEDS ORDERED: ORTHO JOINT ANESTHETIC ONE (06:37)
[2023-03-12] MEDS ORDERED: fentaNYL citrate PF 100 MCG/2 ML VIAL ONE (06:37)
[2023-03-12] MEDS ORDERED: ATROPINE SULFATE 0.1 MG/ML 10ML SYR IV PRN (06:40)
[2023-03-12] MEDS ORDERED: ONDANSETRON INJ 2 MG/ML 2 ML VIAL IV PRN ×2 (06:40→09:47)
[2023-03-12] MEDS ORDERED: fentaNYL citrate PF 100 MCG/2 ML VIAL IV PRN (06:40)
[2023-03-12] MEDS ORDERED: ePHEDrine sulfate 50 MG/ML AMP IV PRN (06:40)
--- NOTE | 2023-03-12 06:58 | History & Physical Bridge Note ---
Date of Service March 12, 2023 History & Physical Bridge Note I have examined the patient, reviewed the History & Physical and in the interval since the performance of the History & Physical I have noted the following changes of clinical significance: no changes noted
[2023-03-12] MEDS: TRANEXAMIC ACID 1,000 MG **IV Intra-op IV SCH ×2 (07:55→09:57)
--- NOTE | 2023-03-12 08:20 | Operative Report ---
PG Post Operative Report Pre & Post Diagnosis Operation Date: 03/12/23 07:00 Pre-Op Diagnosis: Degenerative Joint Disease Left knee Post-Op Diagnosis: Degenerative Joint Disease Left knee I identified the patient and participated in the time-out.: Yes Procedure Operation Date: 03/12/23 07:00 Actual Procedures p Left Total Knee Arthroplasty, Cemented(Left) - Cleveland Mondragon DO Surgeon Cleveland Mondragon DO Farm Crew Member Cleveland Arambula PA-C Estimated Blood Loss 30 Findings Consistent with Post-Op Diagnosis Specimens Left femoral tibial bone Description of Procedure Implants used: I used a Jackie Persona total knee arthroplasty system with a size 8 standard femur, E tibia, 31 oval patella, and a size 12 medial congruent polyethylene bearing. All components were cemented in place with Biomet cement. Anuradha arrived [facility] for the above procedure. She was seen in the preoperative holding area and the operative extremity was identified and signed. She was given a preoperative antibiotic, TXA, a spinal anesthetic and an adductor nerve block. She was taken back to the operating room and laid on the table in supine position. She was given basic sedation. The operative knee was then prepped and draped in sterile fashion. A timeout was done, and the patient and the operative extremity was properly identified. A midline incision was made directly over the patella. Dissection was taken down to the extensor mechanism. A midvastus arthrotomy was used. The medial retinaculum was released and the fat pad was mostly excised. The knee was flexed and the ACL, PCL, and meniscus were removed. A drill was sent down the center of the femoral canal followed by an intramedullary rachel. Off that rachel a distal femoral cutting block was placed. 9 mm was resected off the distal femur at 5 of valgus. A posterior referencing AP sizing guide was then placed on the distal femur. The femur measured to be a size 8. 2 drill holes were placed in 3 of external rotation. A 4-in-1 cutting block was then impacted into place. Anterior, posterior, and chamfer cuts were then made. The proximal tibia was then exposed. An external tibial alignment guide was placed. A tibial cut guide was then anchored in place and the proximal tibia was then resected. The posterior aspect of the knee was then opened up and any additional meniscus fragments and osteophytes were removed. The tibia measured to be a size E. The tibial plate was then placed in the appropriate rotation and the tibia was drilled and punched. Trial components were then placed. I used a size 12 medial congruent polyethylene insert. The knee was brought through a full range of motion and felt to be stable. The peg holes for the femoral component were then drilled. The patella was then everted and 9 mm was resected off the posterior aspect of the patella. The patella measured to be a size 31 oval. 3 peg holes were then drilled. A trial patella was placed. The knee was once again brought through a full range of motion and felt to be stable. Trial components were then removed. The surrounding soft tissues were injected with 100 cc of an orthopedic pain control cocktail. All components were then cemented into place with Biomet cement. The final polyethylene insert was then snapped into place. Once cement was dry the tourniquet was deflated. Hemostasis was obtained. A dilute betadyne lavage was then done for 3 minutes. The joint was then irrigated with normal saline solution. The midvastus art hrotomy was then closed with #1 Vicryl suture. The skin was closed with 2-0 Vicryl, 3-0V lock suture, and lois. A soft compressive dressing was placed. She was then transferred to a hospital bed and taken to the postanesthesia care unit in stable condition. She tolerated the procedure well. Cleveland Arambula PA-C, was present for the entire procedure. He was critical for patient positioning, prepping, draping, retraction exposure, wound closure and application of sterile dressing. I attest to the content of the Intraoperative Record and any orders documented therein. Any exceptions are noted below.
--- NOTE | 2023-03-12 09:42 | Anesthesiology Progress Note ---
Date of Service March 12, 2023 Anesthesia Post Procedure Vital Signs Vital Signs: Temp Pulse Pulse Resp BP BP Pulse Ox 03/12/23 09:15 97.7 F 59 L 17 118/72 94 03/12/23 09:05 60 18 118/76 92 03/12/23 08:55 61 18 122/73 94 03/12/23 08:45 61 15 120/70 94 03/12/23 08:35 63 19 113/69 94 03/12/23 08:25 97.7 F 65 15 101/63 95 03/12/23 05:48 98.1 F 84 20 176/102 H 95 O2 Del Method O2 Flow Rate 03/12/23 09:15 Oxymask 2 03/12/23 09:05 Oxymask 2 03/12/23 08:55 Oxymask 5 03/12/23 08:45 Oxymask 5 03/12/23 08:35 Oxymask 5 03/12/23 08:25 Oxymask 5 03/12/23 05:48 Room Air Transfer of Care Handoff Completed per policy Notes Mental Status: alert / awake / arousable and participated in evaluation Patient Amnestic to Procedure: Yes Nausea / Vomiting: adequately controlled Pain: adequately controlled Airway Patency, RR, SpO2: stable & adequate BP & HR: stable & adequate Hydration State: stable & adequate Neuraxial Anesthesia: was administered and sensory block is resolving Anesthetic Complications: no major complications apparent and Pt Satisfied with anesthetic care
[2023-03-12] MEDS ORDERED: oxyCODONE HCL IR 5 MG TAB (IMMEDIATE RELEASE) PO PRN (09:47)
[2023-03-12] MEDS ORDERED: NALOXONE HCL 0.4 MG/1 ML VIAL/CARP IV PRN (09:47)
[2023-03-12] MEDS ORDERED: MECLIZINE HCL 25 MG TAB PO PRN (09:47)
[2023-03-12] MEDS ORDERED: MINOXIDIL TOP SCH (09:47)
[2023-03-12] MEDS ORDERED: MAGNESIUM HYDROXIDE SUSP 30 ML UDC PO PRN (09:47)
[2023-03-12] MEDS ORDERED: HYDROmorphone INJ 0.5 MG/0.5 ML SYR IV PRN (09:47)
[2023-03-12] MEDS ORDERED: METOCLOPRAMIDE HCL INJ 5 MG/ML 2 ML VIAL IV PRN (09:47)
[2023-03-12] MEDS ORDERED: diazePAM 5 MG TABLET PO PRN (09:47)
[2023-03-12] MEDS ORDERED: bisacodyL 10 MG SUPP PR PRN (09:47)
[2023-03-12] MEDS ORDERED: acetaZOLAMIDE 250 MG TAB PO PRN (10:29)
--- NOTE | 2023-03-12 10:57 | XRay Report ---
XR knee LT 1 or 2V routine CLINICAL HISTORY: Surgical Post Op TECHNIQUE: 2 views of the left knee were obtained. Comparison: Comparison is made to knee radiographs 01/09/2023 FINDINGS: Patient is status post total knee arthroplasty with expected postsurgical changes including soft tiss ue swelling and subcutaneous emphysema. No periarticular lucency or hardware fracture is seen. IMPRESSION: Expected postoperative appearance status post placement of total knee arthroplasty. ACT 112: Negative or not required by law. Electronically signed by: Ollie Crump M.D. 03/12/2023 10:56 AM
[2023-03-12] MEDS: MULTIVITAMIN TAB PO SCH (11:03)
[2023-03-12] MEDS: DOCUSATE SODIUM 100 MG CAP PO SCH ×2 (11:03→20:36)
[2023-03-12] MEDS: ASPIRIN 81 MG ECTAB PO SCH ×2 (11:03→20:36)
[2023-03-12] MEDS: SODIUM CHLORIDE 0.9% 1000ML 1,000 ML IV SCH ×2 (11:04→21:55)
[2023-03-12] MEDS: PANTOprazole 40 MG TAB PO SCH (11:04)
[2023-03-12] MEDS: KETOROLAC TROMETHAMINE 15 MG/ML VIAL IV SCH ×3 (11:08→21:42)
[2023-03-12] MEDS: ACETAMINOPHEN 500 MG TAB PO SCH ×2 (13:52→21:41)
[2023-03-12] MEDS: ceFAZolin 2000MG 2,000 MG/15 ML SYR IV SCH ×2 (13:52→21:42)
[2023-03-12] MEDS ORDERED: ATORVASTATIN 10 MG TAB PO SCH (21:00)
[2023-03-12] MEDS ORDERED: SENNA 8.6 MG TAB PO SCH (21:00)
[2023-03-13] MEDS: ACETAMINOPHEN 500 MG TAB PO SCH (05:27)
[2023-03-13] MEDS: KETOROLAC TROMETHAMINE 15 MG/ML VIAL IV SCH (05:27)
--- NOTE | 2023-03-13 06:33 | Orthopedic Progress Note ---
Date of Service March 13, 2023 Assessment & Plan (1) Status post left knee replacement: Overall she is doing very well. She is not having much pain in the left knee. She will be seen by physical therapy today for ambulation and range of motion exercises. She is on aspirin for DVT prophylaxis. She can be discharged home later today. She will follow-up with orthopedics in 2 weeks. Clovis Ling was seen and examined at bedside this morning. Overall she is doing very well. She is not having much pain in the left knee. She has been up and ambulating to the bathroom. She has no complaints.. Review of Systems All systems reviewed & are unremarkable except as noted in HPI & below. Physical Exam On physical examination of left knee, the dressing is clean and dry. Her leg is out full extension. She has active dorsiflexion plantarflexion of her left ankle.. Results & Data Results & Data Laboratory Results . Diagnostic Findings Postoperative knee show the prosthesis to be in anatomic alignment without any evidence of fracture, dislocation, or loosening. PG Care Time/CCT Total # of Minutes Spent Total Time Spent with Patient: Total time spent is greater than 50% in coordination of care (as documented) at patient's floor/unit and/or counseling patient: Coding Level of Care Code 90687 Post Operative Follow-Up Diagnoses Status post left knee replacement Z96.652
--- NOTE | 2023-03-13 06:34 | Discharge Summary ---
Date of Service March 13, 2023 Admission HPI (Per Admitting) Anuradha is a pleasant 77-year-old female who I just did a right knee replacement on several months ago. She is done very well with that. Unfortunately she is dealing with left knee pain. X-rays and clinical examination are diagnostic for advanced osteoarthritis of the left knee. After failing conservative treatment, she has elected proceed with a left total knee arthroplasty.. Admission Exam (Per Admitting) Physical examination of the left knee shows a slight varus deformity. He has tenderness palpation of the distal medial femoral condyle and over the medial joint line.. Principal Diagnosis Same as "Discharge Diagnosis" noted below under Discharge Instructions. Discharge Exam On physical examination of left knee, the dressing is clean and dry. Her leg is out full extension. She has active dorsiflexion plantarflexion of her left ankle.. Discharge Data Procedures Performed Operation Date: 03/12/23 07:00 Actual Procedures p Left Total Knee Arthroplasty, Cemented(Left) - Cleveland Mondragon DO Ordered Studies 03/12/23 05:00 US - OR guided needle placemen Routine Hospital Course (1) Status post left knee replacement: On March 12, 2023 Anuradha arrived at [facility] and underwent a left knee replaced without complication. She had a spinal anesthetic. Postoperatively she was started on aspirin for DVT prophylaxis and transferred to the general orthopedic floors. Her hospital course was uneventful. On postop day #1, her vital signs were stable and her pain was well controlled. She was able to participate well with physical therapy doing ambulation and range of motion exercises. She was then discharged home. She will follow-up with orthopedics in 2 weeks. PG Care Time/CCT Total # of Minutes Spent Total Time Spent with Patient: Total time spent is greater than 50% in coordination of care (as documented) at patient's floor/unit and/or counseling patient: Discharge Plan Discharge Items Patient Disposition: Home - Home Health Services Reason For Visit: Degenerative Joint Disease Left knee Discharge Diagnosis: Left knee replacement Activity: Per Instructions section Non-emergency contact: Surgeon Call non-emergency contact if: your wound has increased redness and your wound has increased drainage Follow-up/Referrals: Renee Becerra MD [Primary Care Provider] - Diet: Regular Addtl Attending Provider Instructions: Activity and Therapy Recommendations: * If you are using [facility] then therapy will be provided at your home until they feel you have accomplished all of your goals. * If you are using [facility] then Physical Therapy will be provided until they feel you are ready to start Outpatient Physical Therapy. * If you are not using home therapy then Outpatient Physical Therapy should start about 3-5 days from your day of surgery. Therapy will last about 6-10 weeks * It is important not to put a pillow under your knee when you are relaxing or sleeping. It is just as important to make sure you are getting your knee perfectly straight as it is to regain your knee bend. * You were shown a series of exercises in the hospital. Do these exercises three times each day including the exercises you were shown in physical therapy. * Get up and walk several times each day. For the first four weeks, try not to stand or walk for more than one hour at a time. If you do stand or walk for more than one hour, you will not hurt anything, but your leg will likely swell. * As you feel comfortable, you may change from the walker or crutches to a cane and then to independent walking. Medications: * Narcotic You will likely be sent home from the hospital with a prescription for the narcotic pain medication that worked best throughout your stay. * Aspirin Most patients will be required to take Aspirin 81mg twice a day for 6 weeks after surgery. This is obtained [id number] and a prescription is not necessary. * Other medications may be prescribed for specific circumstances. If you have any questions, please call the office at . * Resume previous home medications unless otherwise instructed TEDs/Elastic Stockings: The white elastic stockings help limit swelling and prevent blood clots from forming in your legs.~ The more you wear them, the more they work. Wear them fo r six weeks. Dressing Care: The dressing can be changed after physical therapy on postop day #1. Daily dry dressing changes for a few days, especially if the incision is still draining some. If the incision is not draining then you may leave the lois open to air. If there is a little bit of drainage or if the lois are getting stuck on your clothing then cover the incision with a dry dressing. The lois will be removed at your 2 week follow-up appointment. Showering: You may shower 5 days from the day of surgery as long as the incision is no longer draining. You may shower with the lois exposed. Let soapy water run over the lois and pat them dry. Do not scrub or soak the incision. Things To Watch For: * Drainage from the incision site that occurs more than one week after your surgery. * Increased redness at the incision site. * Fever above 102 degrees Fahrenheit. * Unusual chest pain or shortness of breath. * Call [facility] at with any of the above problems Follow-Up Visit: Follow-up with Dr. Mondragon's PA (Cleveland Arambula) 2-3 weeks after your day of surgery. He will remove your lois and answer any questions. If you have any additional questions or concerns, Dr Mondragon is usually in the office at the same time and will be available An appointment was probably scheduled when you signed-up for surgery in the office. If you have any questions call Office Instructions: More detailed instructions as well as Frequently Asked Questions were provided in a folder by our office when you signed-up for surgery. Please review these instructions when you get home. If you have any further questions or concerns, please feel free to call the office at [phone] Pending Studies at Discharge: No Stand-Alone Forms: My [facility], Smoking Cessation Medications and DC Order Prescriptions: New celecoxib [Celebrex] 200 mg capsule 200 mg PO BID Qty: 28 0RF Rx Instructions: Take 1 pill twice a day for 2 weeks after surgery aspirin [Adult Aspirin Regimen] 81 mg tablet,delayed release (DR/EC) 81 mg PO BID Qty: 84 0RF Continued acetazolamide 125 mg tablet 125 mg PO UD PRN (Reason: Vertigo) Patient Comments: HAVEN'T HAD TO TAKE FOR OVER A YR , TRIGGER FOR VERTIGO IS CAFFEINE cholecalciferol (vitamin D3) 1,000 unit capsule 1,000 units PO QAM omeprazole 20 mg capsule,delayed release(DR/EC) 20 mg PO QAM Qty: 30 11RF acetaminophen 500 mg Tablet 1,000 mg PO Q8H PRN (Reason: Pain) minoxidil [Rogaine] 2 % Solution 1 ml TOPICAL QAM calcium carbonate [Tums] 200 mg calcium (500 mg) Tablet,Chewable 200 mg PO QID PRN (Reason: gerd) atorvastatin 10 mg tablet 10 mg PO QPM Rx Instructions: TAKE 1 TABLET BY MOUTH EVERY DAY amoxicillin 500 mg tablet 2,000 mg PO UD PRN (Reason: PRIOR TO DENTAL ) Rx Instructions: 4 tabs 1 hour prior to procedure meclizine 25 mg tablet 25 mg PO UD PRN (Reason: dizziness) diazepam 5 mg tablet 5 mg PO UD PRN (Reason: vertigo ) oxycodone-acetaminophen 5-325 mg Tablet 1 tab PO UD PRN (Reason: Pain) Patient Comments: PRESCRIBED AFTER SX IN NOV 2022, DID NOT HAVE TO USE. Admission Data Admit Date/Time: 03/12/23 08:25 Attending Provider: Cleveland Mondragon Admit Provider: Cleveland Mondragon Primary Care Provider: Renee Becerra
[2023-03-13] MEDS ORDERED: dexAMETHasone 4 MG TAB PO SCH (08:00)
[2023-03-13] MEDS: ASPIRIN 81 MG ECTAB PO SCH (08:02)
[2023-03-13] MEDS: MULTIVITAMIN TAB PO SCH (08:02)
[2023-03-13] MEDS: DOCUSATE SODIUM 100 MG CAP PO SCH (08:02)
[2023-03-13] MEDS: PANTOprazole 40 MG TAB PO SCH (08:02)
== END 2023-03-13 10:49 | disposition home health service (06) ==
LOC: 3E 05:21 → ASU 05:21

== ENCOUNTER 2025-08-28 10:49 | Inpatient (IN) ==
--- NOTE | 2025-08-28 11:11 | Emergency Department Note ---
Impression & Plan Acute pain of right hip, Fracture of femoral neck, right, Fall ED Provider Note ED Provider Note NAME: NICOLE GARZA AGE:80 SEX: Female : 1945 ARRIVES VIA: EMS INFORMANT: Patient ED PROVIDER(s): Zoila Alvarez DO CHIEF COMPLAINT: fall, right hip pain HPI: Is an 80-year-old female who presents to the emergency department due to concern for right hip pain following a fall. Patient [facility] and [facility] a rock falling and landing on her right side. She states she landed predominantly on her right hip but then also her right arm/elbow area. She states she did not strike her head and does not lose consciousness. She states she does take an aspirin daily, no other anticoagulation. She denies any neck or back pain, chest pain, abdominal pain, or difficulty breathing. Patient states she was unable to get up due to the pain in her right hip and unable to walk. PAST MEDICAL HISTORY:See Below PAST SURGICAL HISTORY:See Below FAMILY HISTORY:See Below SOCIAL HISTORY:See Below HOME MEDICATIONS:See Below ALLERGIES:See Below VITALS:See Below PHYSICAL EXAMINATION: GENERAL: alert, well appearing, well nourished, no distress, non-toxic EYE EXAM: normal conjunctiva, PERRL and EOM's grossly intact OROPHARYNX: no exudate, no erythema, lips, buccal mucosa, and tongue normal and mucous membranes are moist NECK: supple, no nuchal rigidity, no adenopathy, non-tender LUNGS: Clear to auscultation. Normal chest wall mechanics, no w/r/r HEART: no murmurs, S1 normal and S2 normal ABDOMEN: abdomen soft, non-tender, normo-active bowel sounds, no masses, no rebound or guarding. SKIN: no rashes, petechiae, orbruising UPPER EXTREMITIES: upper extremities are grossly normal. FROM, nml pulses b/l. No bony tenderness with palpation, no joint effusions, superficial appearing abrasion noted at the right elbow. LOWER EXTREMITIES: No pitting edema. FROM LLE, nml pulses b/l. Sensation intact bilaterally. Mild shortening noted of the right lower extremity with mild external rotation. Mild pain with palpation over the right lateral hip, patient also notes points to anterior right hip/inguinal region as being painful with any attempts at movement. Patient with decreased range of motion of the right hip secondary to pain. NEURO EXAM: Normal sensorium, cranial nerves II-XII grossly intact, normal speech, no facial droop,nogross weakness of arms, no gross weakness of legs. Gross sensation intact. No ataxia. Vital Signs: reviewed and remarkable Differential Diagnosis: Fracture, subluxation, dislocation, contusion, ligamentous injury, neurovascular, compartment syndrome, rhabdomyolysis, as well as other pathologies. MEDICAL DECISION MAKING: This is a 80-year-old female who presents to the emergency department after an accidental fall today onto the right hip complaining of pain. Patient did appear slightly externally rotated and shortened. She had decreased range of motion of the right hip secondary to pain. She was otherwise afebrile and hemodynamically stable. She does use aspirin, no other anticoagulation. Labs drawn and sent, IV established, EKG and x-rays performed at bedside and interpreted by me and the patient was monitored on telemetry. She was given IV Tylenol and IV fentanyl for pain. Patient was noted to have a right femoral neck fracture. Due to concern for other ongoing medical issues and need for clearance prior to surgery, case discussed with the hospitalist team for further evaluation and management. Eventually following their evaluation, I did speak with Dr. Medel of orthopedics as well and attempted to notify the PA who works with him. Patient and family at bedside updated on all results and plan and need for further inpatient evaluation and treatment. Patient neurovascularly intact and hemodynamically stable throughout. At this time I do low suspicion for any additional occult traumatic injury. Consultation(s): 1249: Discussed with [facility] hospitalist team, for additional evaluation and management. [id number]: Discussed with Dr. Medel, orthopedics. ER Treatment Provided: See below Diagnostics Interpreted By Me: -ECG: Normal sinus at 66, normal axis, interventricular conduction delay and borderline prolonged QTc, T wave inversions noted in 1, aVL, V4 through V6; compared to 10/17/2022 the lateral T wave inversions are new -Cardiac Monitoring: An order was placed for continuous cardiac monitoring. The monitor shows a rate of 66 with normal sinus rhythm. -Laboratory studies: As stated above and show below. -Imaging studies: xr hip/pelvis: Right femoral neck fracture, no dislocation X-ray Chest: A single view study of the chest was reviewed and was negative for cardiomegaly, focal infiltrate, effusion, pulmonary edema, or wide mediastinum. Triage Nursing Note Reviewed Prior/Outside Records Reviewed -reviewed prior cardiology note Past Med/Surg History Problem List (Updated 08/28/25 @ 15:26 by Elijah Barboza MD) Fall (Acute) Fracture of femoral neck, right (Acute) Acute pain of right hip (Acute) Loose stools Abdominal pain Change in bowel habits Sebaceous cyst Dyslipidemia Abnormal ECG Atherosclerosis Dyspnea on exertion Hyperlipemia Arthritis Vitamin D deficiency (Chronic) Tinnitus (Acute) Sleep disturbances (Chronic) Paresthesia (Chronic) Hypertension (Chronic) Cervical radiculopathy (Chronic) Acid reflux (Chronic) Hiatal hernia Impaired fasting glucose (Chronic) A1C 5.7 on 06/2022 Sensorineural hearing loss (SNHL) of both ears Degenerative arthritis of cervical spine (Chronic) Osteopenia (Chronic) Medical History (Updated 08/28/25 @ 15:26 by Elijah Barboza MD) Meniere disease + vertigo, no current issues, hx caffeine triggers Fuchs' corneal dystrophy of both eyes Bronchitis History of hypertension "Resolved" since retiring per patient GERD (gastroesophageal reflux disease) Well controlled, stable Hiatal hernia Hypercholesterolemia Surgical History History of removal of cyst (03/13/24) FINAL DIAGNOSIS In office procedure Dr. Rikki shoemaker, excision: - Epidermal cyst Status post left knee replacement (~03/2023) Status post right knee replacement (~11/2022) History of arthroplasty of right knee Right TKA (11/13/22): SAB at L3/4 (x1 attempt) + PNB at [facility] PONV (postoperative nausea and vomiting) History of loop electrosurgical excision procedure (LEEP) of cervix History of tonsillectomy History of cataract surgery RT/LEFT History of surgical removal of pilonidal cyst x 2 1966/1968 History of tooth extraction History of colonoscopy History of esophagogastroduodenoscopy (EGD) Family History Aunt Colon cancer Father Hypertension Mother Stroke Other No family history of adverse response to anesthesia Denies family history of Ovarian cancer Prostate cancer Myocardial infarction Breast cancer Social History Smoking Status: Never smoker Second Hand Exposure: Yes (IN THE PAST); Do You Dip or Chew Tobacco: No; Hx Alcohol Use: No Hx Substance Use: No Preferred Language: Burkinan Communication Ability: Effective Visual Impairment: No Limitations Hearing Ability: Use of Hearing Aid Weight Inspector Required: No Beliefs That Will Affect Care: Alevism Alevism Beliefs: ANGLICAN marital status: Current Living Situation: Alone current occupational status: retired How many Children do You have: 2 Other Information That Helps Us Care for You: No Feels Safe at Home: Yes Safety Concerns: Feels Safe At This Time Childhood Exposure to Second-Hand Smoke: Yes Diet: regular Diet Comment: regular caffeine: No during the past year weight has: remained stable Dental Care, Regularly: Yes Physical Activity Frequency: 5-6 Times per Week Physical Activity Frequency Comment: walking Seatbelt Use: always Sunscreen Use: Yes (sometimes ) Assistive Devices: Glasses, Hearing Aid - Bilateral and Other Assistive Devices Comment: Lt partial dentures Allergies Allergies Allergy/AdvReac Type Severity Reaction Status Date / Time No Known Allergies Allergy Verified 08/12/25 13:45 Home Meds Home Medications Medication Instructions Recorded Confirmed amoxicillin 500 mg tablet 2,000 mg PO UD PRN PRIOR TO DENTAL 03/01/23 08/28/25 calcium carbonate-vitamin D3 600 0 tab PO DAILY 05/24/24 08/28/25 mg-125 unit tablet acetazolamide 250 mg tablet 125 - 250 mg PO DAILY PRN Other 08/28/25 08/28/25 diazepam 5 mg tablet 0 mg PO BID PRN vertigo 08/28/25 08/28/25 omeprazole 20 mg capsule,delayed 20 mg PO DAILY 08/28/25 08/28/25 release Previous Rx's Medication Instructions Recorded meclizine 25 mg tablet 25 mg PO TID PRN dizziness #30 tabs 08/14/23 aspirin 81 mg tablet,delayed 81 mg PO DAILY #90 tabs 10/19/23 release atorvastatin 10 mg tablet 10 mg PO QPM #90 tabs 12/15/24 lisinopril 10 mg tablet 10 mg PO DAILY #90 tabs 08/24/25 Results & Data (ED) Vital Signs Vital Signs - 24 hr 08/28/25 10:56 08/28/25 11:00 08/28/25 11:02 Temperature 36.6 C Temperature Source Temporal Artery Scan Pulse Rate 68 64 68 Pulse Rate [Apical] Pulse Rhythm [Apical] Pulse Strength [Apical] Respiratory Rate 18 14 Respiratory Effort / Characteristics Respiratory Depth Respiratory Pattern Blood Pressure 168/105 H 178/98 H Blood Pressure [Right Arm] Blood Pressure Mean 126 131 Blood Pressure Mean [Right Arm] Pulse Oximetry 97 96 Oxygen Delivery Method Room Air Room Air Sepsis Recent Fever Within 48 Hours No Sepsis New/Unexplained Change in Mental Status N/A Sepsis Action Taken by Nursing No Action Required 08/28/25 12:16 08/28/25 12:30 Temperature Temperature Source Pulse Rate 63 Pulse Rate [Apical] 64 Pulse Rhythm [Apical] Regular Pulse Strength [Apical] Normal Respiratory Rate 12 13 Respiratory Effort / Characteristics Non-Labored Spontaneous Respiratory Depth Normal Respiratory Pattern Regular Blood Pressure 171/95 H Blood Pressure [Right Arm] 166/96 H Blood Pressure Mean 126 Blood Pressure Mean [Right Arm] 119 Pulse Oximetry 98 98 Oxygen Delivery Method Room Air Room Air Sepsis Recent Fever Within 48 Hours Sepsis New/Unexplained Change in Mental Status Sepsis Action Taken by Nursing Laboratory Data 08/28/25 11:11 08/28/25 11:11 Lab Results 08/28/25 Range/Units 11:11 WBC 5.51 (4.8-10.8) K/ul RBC 4.41 (4.20-5.40) M/uL Hgb 13.0 (12.0-16.0) g/dl Hct 39.9 (37.0-47.0) % MCV 90.5 (80.0-100.0) fL MCH 29.5 (25.0-34.0) pg MCHC 32.6 (32.0-36.0) g/dL RDW Std Deviation 45.2 (36.4-46.3) fL RDW Coeff of Marie 13.6 (11.5-14.5) % Plt Count 206 (130-400) K/uL MPV 11.0 (9.4-12.4) fL Immature Gran % (Auto) 0.5 % Neut % (Auto) 56.9 % Lymph % (Auto) 32.5 % [place] % (Auto) 7.8 % Eos % (Auto) 1.8 % Baso % (Auto) 0.5 % Neut # (Auto) 3.13 (1.40-6.50) K/uL Lymph # (Auto) 1.79 (1.20-3.40) K/uL Screven # (Auto) 0.43 (0.11-0.59) K/uL Eos # (Auto) 0.10 (0.00-0.50) K/uL Baso # (Auto) 0.03 (0.00-0.20) K/uL Immature Gran # (Auto) 0.03 (0.01-0.20) K/uL PT 10.3 (9.0-12.0) Seconds INR 1.0 (0.9-1.1) APTT 24 (21-31) Seconds PTT Ratio 0.9 Sodium 139 (136-145) mmol/L Potassium 4.3 (3.5-5.1) mmol/L Chloride 107 (98-107) mmol/L Carbon Dioxide 25 (21-32) mmol/L Anion Gap 7 (3-11) BUN 16 (6-23) mg/dl Creatinine 0.83 (0.6-1.2) mg/dl Est Cr Clr Drug Dosing 60.5 ml/min eGFR 70.78 BUN/Creatinine Ratio 19.3 (10-20) Glucose 110 H (70-99(Fasting)) mg/dl Calcium 9.0 (8.6-10.3) mg/dl Total Bilirubin 0.8 (0.2-1.0) mg/dl AST 22 (13-39) U/L ALT 18 (7-52) U/L Alkaline Phosphatase 60 (34-104) U/L Total Protein 7.0 (6.0-8.3) gm/dl Albumin 3.7 (3.4-5.0) gm/dl Globulin 3.3 (2.5-4.0) gm/dl Albumin/Globulin Ratio 1.1 (0.9-2) Administered Medications Acetaminophen (Ofirmev) 1,000 mg in 100 mls @ 400 mls/hr IV Q8H DUGLAS Stop: 08/31/25 17:31 Last Infusion: 08/28/25 18:56 Dose: Infused Documented By: tca Admin: 08/28/25 18:29 Dose: 400 mls/hr Documented By: tca Discontinued Medications Fentanyl Citrate (Fentanyl Citrate Pf 100 Mcg/2 Ml Vial) 50 mcg IV NOW STA Stop: 08/28/25 11:03 Last Admin: 08/28/25 11:19 Dose: 50 mcg Documented By: KR Sodium Chloride (Nss) 1,000 mls @ 150 mls/hr IV .Q6H40M DUGLAS Stop: 08/28/25 17:54 Last Infusion: 08/28/25 17:34 Dose: Infused Documented By: garth Admin: 08/28/25 11:20 Dose: 150 mls/hr Documented By: FELICITAS Acetaminophen (Ofirmev) 1,000 mg in 100 mls @ 400 mls/hr IV NOW STA Stop: 08/28/25 11:16 Last Infusion: 08/28/25 12:23 Dose: Infused Documented By: Admin: 08/28/25 11:20 Dose: 400 mls/hr Documented By: FELICITAS Morphine Sulfate (Morphine Sulfate 4 Mg/Ml 1 Ml Carp\\Vial) 2 mg IV NOW STA Stop: 08/28/25 13:46 Last Admin: 08/28/25 14:34 Dose: 2 mg Documented By: TREVOR Morphine Sulfate (Morphine Sulfate 4 Mg/Ml 1 Ml Carp\\Vial) 4 mg IV NOW STA Stop: 08/28/25 13:46 Last Admin: 08/28/25 17:34 Dose: Not Given Documented By: garth Ondansetron HCl (Ondansetron Inj 2 Mg/Ml 2 Ml Vial) Confirm Administered Dose 4 mg .ROUTE .STK-MED ONE Stop: 08/28/25 14:46 Last Admin: 08/28/25 14:47 Dose: Not Given Documented By: TREVOR Ondansetron HCl (Ondansetron Inj 2 Mg/Ml 2 Ml Vial) 4 mg IV NOW STA Stop: 08/28/25 14:48 Last Admin: 08/28/25 14:47 Dose: 4 mg Documented By: TREVOR Imaging Data Radiologist's Impression: Hip/Pelvis X-Ray 08/28/25 11:02 XR hip RT 2V w pelvis CLINICAL HISTORY: trauma, right hip pain COMPARISON: None FINDINGS: There is an acute oblique fracture of the proximal right femoral neck. There is no dislocation. IMPRESSION: Acute proximal right femoral neck fracture. ACT 112: Negative or not required by law. Electronically signed by: Edouard Kunz M.D. 08/28/2025 12:12 PM Chest X-Ray 08/28/25 12:51 XR chest 1V portable HISTORY: 80 years-old Female preop baseline preoperative exam COMPARISON: 02/09/2025 TECHNIQUE: AP view of the chest FINDINGS: Cardiac silhouette is mildly enlarged. Probable hiatal hernia. No pneumothorax, pleural effusion, airspace consolidation or overt pulmonary edema. Degenerative changes of the shoulders and spine. IMPRESSION: No acute processes of the chest. ACT 112: Negative or not required by law. The above report was generated using voice recognition software. It may contain grammatical, syntax or spelling errors. Electronically signed by: Tino Hanna M.D. 08/28/2025 1:26 PM Discharge Plan Visit Data Chief Complaint: Fall Stated Complaint: R Hip Pain ED Provider: Ziola Alvarez Discharge Problem: Acute pain of right hip, Fracture of femoral neck, right, Fall Patient Disposition: Admitted As Inpatient Condition: Fair Discharge Instructions Interventions: ED Discharge Assessment Last Done: 08/28/25 16:26 Discharge Problem: Fracture of femoral neck, right Qualifiers: Encounter type: initial encounter Fracture type: closed Qualified Code(s): S 72.001A - Fracture of unspecified part of neck of right femur, initial encounter for closed fracture Fall Qualifiers: Encounter type: initial encounter Qualified Code(s): W19.XXXA - Unspecified fall, initial encounter
[2025-08-28] MEDS: SODIUM CHLORIDE 0.9% 1,000 ML IV SCH (11:20)
[2025-08-28] MEDS: ACETAMINOPHEN 1,000 MG/100 ML VIAL IV STA (11:20)
[2025-08-28 11:37] LABS: Hematocrit (blood only) 39.9 % (37.0-47.0); Hemoglobin 13.0 g/dl (12.0-16.0); Immature Granulocytes # (auto) 0.03 K/uL (0.01-0.20); Immature Granulocytes % (auto) 0.5 %; Mean Corpuscular Hemoglobin 29.5 pg (25.0-34.0); Mean Corpuscular Volume 90.5 fL (80.0-100.0); Platelet Count 206 K/uL (130-400); RDW Standard Deviation 45.2 fL (36.4-46.3); Red Blood Count 4.41 M/uL (4.20-5.40); White Blood Count 5.51 K/ul (4.8-10.8)
[2025-08-28 11:56] LABS: Alanine Aminotransferase 18.0 U/L (7-52); Albumin Globulin Ratio 1.1 (0.9-2); Albumin Level 3.7 gm/dl (3.4-5.0); Alkaline Phosphatase 60.0 U/L (34-104); Anion Gap 7.0 (3-11); Bilirubin,Total 0.8 mg/dl (0.2-1.0); Blood Urea Nitrogen 16.0 mg/dl (6-23); Calcium 9.0 mg/dl (8.6-10.3); Carbon Dioxide 25.0 mmol/L (21-32); Chloride 107.0 mmol/L (98-107); Creatinine Clr Calc Pharmacy 60.5 ml/min; Globulin 3.3 gm/dl (2.5-4.0); Glucose 110.0 mg/dl (70-99(Fasting)); Potassium 4.3 mmol/L (3.5-5.1); Sodium 139.0 mmol/L (136-145); Total Protein 7.0 gm/dl (6.0-8.3)
[2025-08-28 12:10] LABS: INR 1.0 (0.9-1.1); Partial Thromboplastin Time 24 Seconds (21-31); Prothrombin Time 10.3 Seconds (9.0-12.0)
--- NOTE | 2025-08-28 12:13 | XRay Report ---
XR hip RT 2V w pelvis CLINICAL HISTORY: trauma, right hip pain COMPARISON: None FINDINGS: There is an acute oblique fracture of the proximal right femoral neck. There is no disloca tion. IMPRESSION: Acute proximal right femoral neck fracture. ACT 112: Negative or not required by law. Electronically signed by: Edouard Kunz M.D. 08/28/2025 12:12 PM
--- NOTE | 2025-08-28 13:28 | XRay Report ---
XR chest 1V portable HISTORY: 80 years-old Female preop baseline preoperative exam COMPARISON: 02/09/2025 TECHNIQUE: AP view of the chest FINDINGS: Cardiac silhouette is mildly enlarged. Probable hiatal hernia. No pneumothorax, pleural effusion, air space consolidation or overt pulmonary edema. Degenerative changes of the shoulders and spine. IMPRESSION: No acute processes of the chest. ACT 112: Negative or not required by law. The above report was generated using voice recognition software. It may contain grammatical, syntax o r spelling errors. Electronically signed by: Tino Hanna M.D. 08/28/2025 1:26 PM
--- NOTE | 2025-08-28 13:51 | History & Physical Report ---
Date of Service August 28, 2025 Assessment & Plan (1) Fracture of femoral neck, right: (2) Acute pain of right hip: (3) Fall: (4) Dyslipidemia: (5) Hypertension: (6) Pathological fracture due to age-related osteoporosis: Plan Anuradha is a pleasant 80-year-old woman with past medical history of hyperlipidemia, GERD, hiatal hernia, vitamin D deficiency, hypertension, Mnire's disease, atherosclerosis. She presented after a ground-level fall while walking at the [employer] and tripping over a rock resulted in a right proximal femoral neck fracture. No head strike or LOC. She takes baby aspirin daily but is not on any other anticoagulation. She was admitted for management of her acute right proximal femoral neck fracture. #Acute right proximal femoral neck fracture - result of ground-level fall, tripped over a rock - RCRI is 0, no cardiac ischemic symptoms, no significant valvular heart disease, currently medically optimized - Ortho consulted, appreciate assistance - Keep NPO while awaiting plan from ortho - Continue maintenance IV fluids as ordered - Nonweightbearing status for now - Pain regimen: Scheduled Tylenol 1000 mg Q8H, morphine 4-6 mg IV Q3H PRN moderatesevere pain - Will defer PT/OT consults until in postoperative period - Vit D level added to AM labs #HTN | HLD | Atherosclerosis BP currently elevated, suspect secondary to pain. Anticipate normalization of BP with improved pain control - Continue lisinopril 10 mg daily - Continue atorvastatin 10 mg QPM - Aspirin 81 mg daily on hold #GERD | Hiatal hernia - continue PPI #Mnire's disease - meclizine 25 mg TID PRN dizziness VTE PPx: Lovenox Dispo: Admission to [facility]. Anticipate surgical intervention. Daughter updated at bedside on admission Reviewed prior medical records Discussed case with ED physician and Ortho WILLOW History of Present Illness Chief Complaint: Right hip pain, fall Primary Care Provider: Renee Becerra MD Anuradha is a pleasant 80-year-old woman with past medical history of hyperlipidemia, GERD, hiatal hernia, vitamin D deficiency, hypertension, Mnire's disease, atherosclerosis. She presented via EMS after she experienced a ground-level fall. At the time of my exam, the patient was lying in bed in mild distress secondary to pain. Daughter present at bedside. Patient states she was walking at the [employer] and tripped over a rock which caused her to fall and she subsequently landed on her right hip. She also has abrasions to her right arm/elbow related to this fall. She denies head strike or loss of consciousness. She takes baby aspirin daily but does not take blood thinners or other anticoagulation. Currently she reports right sided hip pain most prominent in her groin, but also starting to radiate distally down her right LE to her knee. She denies any head, neck, back pain. She reports following with cardiology for her dyslipidemia, hiatal hernia, and dyspnea on exertion. She notes her LACEY has improved with increased exercise recently. She denies any angina, lightheadedness/dizziness, heart palpitations, dyspnea at rest, or history of significant valvular pathologies. Patient reports that she took her regular morning medications today; only recent medication change was the addition of lisinopril 3 months ago for treatment of hypertension. She does not use supplemental oxygen at baseline. No CPAP at night. Vitals on admission significant for elevated BP at 166/96; vitals otherwise stable. Labs on admission are overall unremarkable. CBC with differential completely WNL. Coagulation studies WNL. Electrolytes WNL. Renal function WNL. LFTs WNL. Right hip/pelvis x-ray on admission reveals acute proximal right femoral neck fracture. CXR with no acute processes of the chest. We discussed code status, patient wishes to be a full code. Allergies Allergy/AdvReac Type Severity Reaction Status Date / Time No Known Allergies Allergy Verified 08/12/25 13:45 Home Medications Medication Instructions Recorded Confirmed Type amoxicillin 500 mg tablet 2,000 mg PO UD PRN PRIOR TO DENTAL 03/01/23 08/28/25 History meclizine 25 mg tablet 25 mg PO TID PRN dizziness #30 tabs 08/14/23 08/28/25 Rx aspirin 81 mg tablet,delayed 81 mg PO DAILY #90 tabs 10/19/23 08/28/25 Rx release calcium carbonate-vitamin D3 600 0 tab PO DAILY 05/24/24 08/28/25 History mg-125 unit tablet atorvastatin 10 mg tablet 10 mg PO QPM #90 tabs 12/15/24 08/28/25 Rx lisinopril 10 mg tablet 10 mg PO DAILY #90 tabs 08/24/25 08/28/25 Rx acetazolamide 250 mg tablet 125 - 250 mg PO DAILY PRN Other 08/28/25 08/28/25 History diazepam 5 mg tablet 0 mg PO BID PRN vertigo 08/28/25 08/28/25 History omeprazole 20 mg capsule,delayed 20 mg PO DAILY 08/28/25 08/28/25 History release Past Med/Surg History Problem List (Updated 09/02/25 @ 10:05 by Dannie Araya MD) Pathological fracture due to age-related osteoporosis Fracture of femoral neck, right (Acute ~08/28/25) Acute fracture of proximal right femoral neck Fall (Acute) Fracture of femoral neck, right (Acute 08/28/25) Acute proximal right femoral neck fracture from a fall Acute pain of right hip (Acute) Loose stools Abdominal pain Change in bowel habits Sebaceous cyst Dyslipidemia Abnormal ECG Atherosclerosis Dyspnea on exertion Hyperlipemia Arthritis Vitamin D deficiency (Chronic) Tinnitus (Acute) Sleep disturbances (Chronic) Paresthesia (Chronic) Hypertension (Chronic) Cervical radiculopathy (Chronic) Acid reflux (Chronic) Hiatal hernia Impaired fasting glucose (Chronic) A1C 5.7 on 06/2022 Sensorineural hearing loss (SNHL) of both ears Degenerative arthritis of cervical spine (Chronic) Osteopenia (Chronic) Medical History (Updated 09/02/25 @ 10:05 by Dannie Araya MD) Meniere disease + vertigo, no current issues, hx caffeine triggers Fuchs' corneal dystrophy of both eyes Bronchitis History of hypertension "Resolved" since retiring per patient GERD (gastroesophageal reflux disease) Well controlled, stable Hiatal hernia Hypercholesterolemia Surgical History History of removal of cyst (03/13/24) FINAL DIAGNOSIS In office procedure Dr. Brandt Chest wall, excision: - Epidermal cyst Status post left knee replacement (~03/2023) Status post right knee replacement (~11/2022) History of arthroplasty of right knee Right TKA (11/13/22): SAB at L3/4 (x1 attempt) + PNB at [facility] (postoperative nausea and vomiting) History of loop electrosurgical excision procedure (LEEP) of cervix History of tonsillectomy History of cataract surgery RT/LEFT History of surgical removal of pilonidal cyst x 2 1966/1968 History of tooth extraction History of colonoscopy History of esophagogastroduodenoscopy (EGD) Family History Aunt Colon cancer Father Hypertension Mother Stroke Other No family history of adverse response to anesthesia Denies family history of Ovarian cancer Prostate cancer Myocardial infarction Breast cancer Social History Smoking Status: Never smoker Second Hand Exposure: Yes (IN THE PAST); Do You Dip or Chew Tobacco: No; Hx Alcohol Use: No Hx Substance Use: No Preferred Language: Mohawk Communication Ability: Effective Visual Impairment: No Limitations Hearing Ability: Use of Hearing Aid Waiter/Waitress Required: No Beliefs That Will Affect Care: Restorationist Restorationist Beliefs: CHEONDOISM marital status: Current Living Situation: Alone current occupational status: retired How many Children do You have: 2 Feels Safe at Home: Yes Childhood Exposure to Second-Hand Smoke: Yes Diet: regular Diet Comment: regular caffeine: No during the past year weight has: remained stable Dental Care, Regularly: Yes Physical Activity Frequency: 5-6 Times per Week Physical Activity Frequency Comment: walking Seatbelt Use: always Sunscreen Use: Yes (sometimes ) Assistive Devices: Glasses Review of Systems Review of Systems: All systems reviewed & are unremarkable except as noted in HPI & below Musculoskeletal: + joint pain and + limited range of rufina on Physical Exam Physical Exam: General: Mild acute distress secondary to pain, nondiaphoretic, well-developed, well-nourished. Skin: Warm, dry. No rashes or peripheral edema noted. Superficial abrasion to right elbow. Cardiac: Regular rate and rhythm without murmurs gallops or rubs. Pulm: Clear to auscultation bilaterally without wheezes, rales or rhonchi. Normal respiratory effort. 98% on room air. Abdominal: Soft, nontender, nondistended. Bowel sounds present. Extremities: Mild shortening of right lower extremity with mild external rotation. Pain with palpation over right lateral hip. Limited RLE ROM secondary to pain. Normal pulses in LE bilaterally. No tenderness to palpation of right UE joints. Full ROM of R UE. Neuro: A&O x3. No focal neurological deficits. Results & Data Results & Data Vital Signs (Past 12 Hours) Vital Signs Temp Pulse Pulse Resp BP BP Pulse Ox 08/28/25 12:16 64 12 166/96 H 98 08/28/25 11:02 68 08/28/25 10:56 97.9 F 68 18 168/105 H 97 O2 Del Method 08/28/25 12:16 Room Air 08/28/25 11:02 08/28/25 10:56 Room Air Laboratory Results Reviewed CBC with differential, coagulation studies, CMP/chemistries Diagnostic Findings Reviewed hip/pelvis x-ray, CXR Supervising Physician Co-Signing Physician Notes Attending Attestation & Admit Note: Pt seen/examined, chart reviewed, admit care plan d/w EARLINE Mendiola. I agree w/ the owens components of her admission documentation with the following addition -- * pathological fracture of right hip due to age-related osteoporosis 80yo female with hyperlipidemia, GERD, hiatal hernia, vitamin D deficiency, hypertension, Mnire's disease. [facility]ed [facility] via [facility] after she experienced a ground-level fall while tripping on a rock at the [facility]. x-rays upon presentation showed right hip fracture. I saw Ms Hurst on the orthopedic floor and she c/o right hip pain. The previously administered IV morphine caused her to have nausea. She has little appetite. She denies any significant pain in other locations (back, arms, etc). She has not voided in a long period of time and feels uncomfortable in the bladder region. Has not been able to void. Family at bedside during my assessment. PMH/PSH/allergies/meds/sochx - reviewed VSS, afebrile, o2 sats wnl gen - pleasant, laying in bed, looks mildly uncomfortable mouth - MM dry neck - no JVD heart - RRR, s1 s2, no murmur lungs - CTA b/l abd - soft, distended in suprapubic region, nontender, no HSM ext - right leg is shortened and externally rotated, pulses b/l feet 2+, mild edema right thigh musculo - no signs of trauma to arms or left leg labs reviewed imaging reviewed A/P: 1. right hip fracture // pathological fracture of right hip due to age-related osteoporosis 2. inability to void 3. hiatal hernia / GERD 4. h/o vit D deficiency 5. HTN -pain control -IV fluids -bedrest -place grace -clear liquid tray in ronen of solids due to nausea -check 25-OH vit D level am -cont PPI -hold LIZANDRO in preparation for surgery tomorrow -appreciate ortho assistance; Dr Medel to perform ORIF of R hip fracture tomorrow family updated Dannie Araya MD PG Care Time/CCT Total # of Minutes Spent Total Time Spent with Patient: Total time spent is greater than 50% in coordination of care (as documented) at patient's floor/unit and/or counseling patient: Coding Level of Care Code 12604 INT INP/OBS CARE 75MIN Diagnoses Closed fracture of neck of right femur, initial encounter S72.001A Encounter type: initial encounter Fracture type: closed Acute pain of right hip M25.551 Fall, initial encounter W19.XXXA Encounter type: initial encounter Dyslipidemia E78.5 Primary hypertension I10 Hypertension type: primary hypertension Pathological fracture due to age-related osteoporosis M80.00XA (1) Fracture of femoral neck, right Encounter type: initial encounter Fracture type: closed Qualified Code(s): S72.001A - Fracture of unspecified part of neck of right femur, initial encounter for closed fracture (3) Fall Encounter type: initial encounter Qualified Code(s): W19.XXXA - Unspecified fall, initial encounter (5) Hypertension Hypertension type: primary hypertension Qualified Code(s): I10 - Essential (primary) hypertension
[2025-08-28] MEDS: MoRPHine SULFATE 4 MG/ML 1 ML CARP\\VIAL IV STA ×2 (14:34→17:34)
[2025-08-28] MEDS: ONDANSETRON INJ 2 MG/ML 2 ML VIAL IV STA (14:47)
[2025-08-28] MEDS: ONDANSETRON INJ 2 MG/ML 2 ML VIAL ONE (14:47)
--- NOTE | 2025-08-28 15:26 | Anesthesiology Consultation ---
Date of Service August 28, 2025 Assessment & Plan (1) Encounter for pre-operative examination: Chart Review Chart Review: Acceptable Risk for Surgery History Surgery Operation Date: 08/29/26 07:30 Proposed Procedures p Right Cemented Bipolar Hip - Omar Medel MD Height/Weight Height: 5 ft 6 in Weight: 91.4 kg Allergies Allergy/AdvReac Type Severity Reaction Status Date / Time No Known Allergies Allergy Verified 08/12/25 13:45 Medications Home Medications Medication Instructions Recorded Confirmed Last Taken amoxicillin 500 mg tablet 2,000 mg PO UD PRN PRIOR TO DENTAL 03/01/23 08/28/25 Unknown meclizine 25 mg tablet 25 mg PO TID PRN dizziness #30 tabs 08/14/23 08/28/25 Unknown aspirin 81 mg tablet,delayed 81 mg PO DAILY #90 tabs 10/19/23 08/28/25 Unknown release calcium carbonate-vitamin D3 600 0 tab PO DAILY 05/24/24 08/28/25 Unknown mg-125 unit tablet atorvastatin 10 mg tablet 10 mg PO QPM #90 tabs 12/15/24 08/28/25 Unknown lisinopril 10 mg tablet 10 mg PO DAILY #90 tabs 08/24/25 08/28/25 Unknown acetazolamide 250 mg tablet 125 - 250 mg PO DAILY PRN Other 08/28/25 08/28/25 Unknown diazepam 5 mg tablet 0 mg PO BID PRN vertigo 08/28/25 08/28/25 Unknown omeprazole 20 mg capsule,delayed 20 mg PO DAILY 08/28/25 08/28/25 Unknown release Active Medications Generic Name Dose Route Start Last Admin Trade Name Freq PRN Reason Stop Dose Admin Sodium Chloride 1,000 mls @ 150 mls/hr 08/28/25 11:15 08/28/25 11:20 Nss IV 08/28/25 17:54 150 mls/hr .[id number] DUGLAS Administration Past Medical History Medical History (Updated 08/28/25 @ 15:26 by Elijah Barboza MD) Meniere disease + vertigo, no current issues, hx caffeine triggers Fuchs' corneal dystrophy of both eyes Bronchitis History of hypertension "Resolved" since retiring per patient GERD (gastroesophageal reflux disease) Well controlled, stable Hiatal hernia Hypercholesterolemia Past Family History Family History Aunt Colon cancer Father Hypertension Mother Stroke Other No family history of adverse response to anesthesia Denies family history of Ovarian cancer Prostate cancer Myocardial infarction Breast cancer Past Surgical History Surgical History History of removal of cyst (03/13/24) FINAL DIAGNOSIS In office procedure Dr. Brandt Chest wall, excision: - Epidermal cyst Status post left knee replacement (~03/2023) Status post right knee replacement (~11/2022) History of arthroplasty of right knee Right TKA (11/13/22): SAB at L3/4 (x1 attempt) + PNB at [facility] (postoperative nausea and vomiting) History of loop electrosurgical excision procedure (LEEP) of cervix History of tonsillectomy History of cataract surgery RT/LEFT History of surgical removal of pilonidal cyst x 2 1966/1968 History of tooth extraction History of colonoscopy History of esophagogastroduodenoscopy (EGD) Social History Smoking Status: Never smoker tobacco type: cigarettes Do You Dip or Chew Tobacco: No Hx Alcohol Use: Yes Alcohol type: wine and hard liquor alcohol intake frequency: holidays/special occasions only Hx Substance Use: No substance use type: does not use Physical Exam Vital Signs Last Vital Signs Temp 36.6 C 08/28/25 10:56 Pulse 51 L 08/28/25 14:55 Resp 22 08/28/25 14:55 BP 144/93 H 08/28/25 14:55 Pulse Ox 97 08/28/25 14:55 O2 Del Method Room Air 08/28/25 14:55 Testing Laboratory Results 08/28/25 11:11 08/28/25 11:11 PT 10.3 Seconds (9.0-12.0) 08/28/25 11:11 INR 1.0 (0.9-1.1) 08/28/25 11:11 APTT 24 Seconds (21-31) 08/28/25 11:11 Electrocardiogram Date: 08/28/25 Findings: + NSR @ (66) wide QRS
--- NOTE | 2025-08-28 16:12 | Orthopedic Consultation ---
Date of Service August 28, 2025 Assessment & Plan (1) Fracture of femoral neck, right: Case/imaging reviewed and discussed with Dr Medel * Recommend right hip hemiarthroplasty, planned for 08/29/25 at 0730. * Disposition: TBD * Daily treatment: Physical Therapy/ Occupational Therapy per protocol * Weight bearing status: non weight bearing on right lower extremity until after procedure * Pain control * Remainder care per primary team * Discussed with patient risks and benefits of surgery including pain, infection, bleeding, risk of anesthesia, prolonged healing time, incomplete relief of symptoms, injury to surrounding tissue and DVT. (2) Fall: History of Present Illness Reason for Consultation: Right hip fracture Requesting Physician: . . Patient is a 80 y/o female with right femoral neck fracture PMH including hypertension and hyperlipidemia. H/O right total knee arthroplasty. Presents to hospital with right hip pain after a fall. Current workup including x-rays and lab work. Orthopedics consulted for management recommendations. At time of exam patient was laying on stretcher. Pt notes she has a good amount of pain but after receiving morphine had nausea and vomiting. Pt states she attempted standing after she fell and was unable to stand or bear any weight on her right lower extremity. Allergies Allergy/AdvReac Type Severity Reaction Status Date / Time No Known Allergies Allergy Verified 08/12/25 13:45 Home Medications Medication Instructions Recorded Confirmed Type amoxicillin 500 mg tablet 2,000 mg PO UD PRN PRIOR TO DENTAL 03/01/23 08/28/25 History meclizine 25 mg tablet 25 mg PO TID PRN dizziness #30 tabs 08/14/23 08/28/25 Rx aspirin 81 mg tablet,delayed 81 mg PO DAILY #90 tabs 10/19/23 08/28/25 Rx release calcium carbonate-vitamin D3 600 0 tab PO DAILY 05/24/24 08/28/25 History mg-125 unit tablet atorvastatin 10 mg tablet 10 mg PO QPM #90 tabs 12/15/24 08/28/25 Rx lisinopril 10 mg tablet 10 mg PO DAILY #90 tabs 08/24/25 08/28/25 Rx acetazolamide 250 mg tablet 125 - 250 mg PO DAILY PRN Other 08/28/25 08/28/25 History diazepam 5 mg tablet 0 mg PO BID PRN vertigo 08/28/25 08/28/25 History omeprazole 20 mg capsule,delayed 20 mg PO DAILY 08/28/25 08/28/25 History release Past Med/Surg History Problem List (Updated 08/28/25 @ 15:26 by Elijah Barboza MD) Fall (Acute) Fracture of femoral neck, right (Acute) Acute pain of right hip (Acute) Loose stools Abdominal pain Change in bowel habits Sebaceous cyst Dyslipidemia Abnormal ECG Atherosclerosis Dyspnea on exertion Hyperlipemia Arthritis Vitamin D deficiency (Chronic) Tinnitus (Acute) Sleep disturbances (Chronic) Paresthesia (Chronic) Hypertension (Chronic) Cervical radiculopathy (Chronic) Acid reflux (Chronic) Hiatal hernia Impaired fasting glucose (Chronic) A1C 5.7 on 06/2022 Sensorineural hearing loss (SNHL) of both ears Degenerative arthritis of cervical spine (Chronic) Osteopenia (Chronic) Medical History (Updated 08/28/25 @ 15:26 by Elijah Barboza MD) Meniere disease + vertigo, no current issues, hx caffeine triggers Fuchs' corneal dystrophy of both eyes Bronchitis History of hypertension "Resolved" since retiring per patient GERD (gastroesophageal reflux disease) Well controlled, stable Hiatal hernia Hypercholesterolemia Surgical History History of removal of cyst (03/13/24) FINAL DIAGNOSIS In office procedure Dr. Brandt Chest wall, excision: - Epidermal cyst Status post left knee replacement (~03/2023) Status post right knee replacement (~11/2022) History of arthroplasty of right knee Right TKA (11/13/22): SAB at L3/4 (x1 attempt) + PNB at [facility] (postoperative nausea and vomiting) History of loop electrosurgical excision procedure (LEEP) of cervix History of tonsillectomy History of cataract surgery RT/LEFT History of surgical removal of pilonidal cyst x 2 1966/1968 History of tooth extraction History of colonoscopy History of esophagogastroduodenoscopy (EGD) Family History Aunt Colon cancer Father Hypertension Mother Stroke Other No family history of adverse response to anesthesia Denies family history of Ovarian cancer Prostate cancer Myocardial infarction Breast cancer Social History Smoking Status: Never smoker Second Hand Exposure: Yes (IN THE PAST); Do You Dip or Chew Tobacco: No; Hx Alcohol Use: Yes Alcohol type: wine and hard liquor Alcohol Intake Frequency: 2-3 x/Week Alcohol Intake Frequency Comment: occassionally Hx Substance Use: No Preferred Language: Tamazight Communication Ability: Effective Visual Impairment: No Limitations Hearing Ability: Use of Hearing Aid Deputy Court Clerk Required: No Beliefs That Will Affect Care: Yarsanism Yarsanism Beliefs: UATSDIN marital status: Current Living Situation: Alone current occupational status: retired How many Children do You have: 2 Feels Safe at Home: Yes Childhood Exposure to Second-Hand Smoke: Yes Diet: regular Diet Comment: regular caffeine: No during the past year weight has: remained stable Dental Care, Regularly: Yes Physical Activity Frequency: 5-6 Times per Week Physical Activity Frequency Comment: walking Seatbelt Use: always Sunscreen Use: Yes (sometimes ) Assistive Devices: Glasses Review of Systems All systems reviewed & are unremarkable except as noted in HPI & below. Physical Exam * General: Alert and oriented, no acute distress * Constitutional: well-developed, well-nourished. * Respiratory: Normal respiratory effort, no distress * Gastrointestinal: No tenderness to palpation, no rigidity or guarding. * Skin: No rash or lesion. * Neurologic: Grossly normal * Musculoskeletal: Right hip irritable. Neurovascularly intact. Results & Data Results & Data Laboratory Results Laboratory Results - last 24 hr 08/28/25 11:11 WBC 5.51 RBC 4.41 Hgb 13.0 Hct 39.9 MCV 90.5 MCH 29.5 MCHC 32.6 RDW Std Deviation 45.2 RDW Coeff of Marie 13.6 Plt Count 206 MPV 11.0 Immature Gran % (Auto) 0.5 Neut % (Auto) 56.9 Lymph % (Auto) 32.5 Hernando % (Auto) 7.8 Eos % (Auto) 1.8 Baso % (Auto) 0.5 Neut # (Auto) 3.13 Lymph # (Auto) 1.79 Hernando # (Auto) 0.43 Eos # (Auto) 0.10 Baso # (Auto) 0.03 Immature Gran # (Auto) 0.03 PT 10.3 INR 1.0 APTT 24 PTT Ratio 0.9 Sodium 139 Potassium 4.3 Chloride 107 Carbon Dioxide 25 Anion Gap 7 BUN 16 Creatinine 0.83 Est Cr Clr Drug Dosing 60.5 eGFR 70.78 BUN/Creatinine Ratio 19.3 Glucose 110 H Calcium 9.0 Total Bilirubin 0.8 AST 22 ALT 18 Alkaline Phosphatase 60 Total Protein 7.0 Albumin 3.7 Globulin 3.3 Albumin/Globulin Ratio 1.1 . Diagnostic Findings . Hip/Pelvis X-Ray 08/28/25 11:02 XR hip RT 2V w pelvis CLINICAL HISTORY: trauma, right hip pain COMPARISON: None FINDINGS: There is an acute oblique fracture of the proximal right femoral neck. There is no dislocation. IMPRESSION: Acute proximal right femoral neck fracture. ACT 112: Negative or not required by law. Electronically signed by: Edouard Kunz M.D. 08/28/2025 12:12 PM Chest X-Ray 08/28/25 12:51 XR chest 1V portable HISTORY: 80 years-old Female preop baseline preoperative exam COMPARISON: 02/09/2025 TECHNIQUE: AP view of the chest FINDINGS: Cardiac silhouette is mildly enlarged. Probable hiatal hernia. No pneumothorax, pleural effusion, airspace consolidation or overt pulmonary edema. Degenerative changes of the shoulders and spine. IMPRESSION: No acute processes of the chest. ACT 112: Negative or not required by law. The above report was generated using voice recognition software. It may contain grammatical, syntax or spelling errors. Electronically signed by: Tino Hanna M.D. 08/28/2025 1:26 PM PG Care Time/CCT Total # of Minutes Spent Total Time Spent with Patient: Total time spent is greater than 50% in coordination of care (as documented) at patient's floor/unit and/or counseling patient: Coding Level of Care Code 42971 IN/OBS CONSULT LVL 4,60M Diagnoses Closed fracture of neck of right femur, initial encounter S72.001A Encounter type: initial encounter Fracture type: closed Fall, initial encounter W19.XXXA Encounter type: initial encounter (1) Fracture of femoral neck, right Encounter type: initial encounter Fracture type: closed Qualified Code(s): S72.001A - Fracture of unspecified part of neck of right femur, initial encounter for closed fracture (2) Fall Encounter type: initial encounter Qualified Code(s): W19.XXXA - Unspecified fall, initial encounter
[2025-08-28] MEDS ORDERED: MoRPHine SULFATE 10 MG/ML CARP/VIAL IV PRN (17:32)
[2025-08-28] MEDS ORDERED: MoRPHine SULFATE 2 MG/ML CARP IM PRN (17:32)
[2025-08-28] MEDS ORDERED: ALUMINUM/MAGNESIUM SUSP 30 ML UDC PO PRN (17:32)
[2025-08-28] MEDS ORDERED: POLYETHYLENE (MIRALAX) 17 GM PACK PO PRN (17:32)
[2025-08-28] MEDS: ACETAMINOPHEN 1,000 MG/100 ML VIAL IV SCH (18:29)
[2025-08-28] MEDS: D5W AND NSS 1,000 ML IV SCH (21:20)
[2025-08-28] MEDS: ATORVASTATIN 10 MG TAB PO SCH (21:20)
[2025-08-28 21:46] LABS: Appearance Urine Clear (Clear); Glucose Urine UA Negative (Negative)
--- NOTE | 2025-08-28 21:59 | Electrocardiogram Report ---
Test Reason : Blood Pressure : */* mmHG Vent. Rate : 66 BPM Atrial Rate : 66 BPM P-R Int : 190 ms QRS Dur : 138 ms QT Int : 470 ms P-R-T Axes : 47 -29 155 degrees QTcB Int : 492 ms Normal sinus rhythm Left ventricular hypertrophy with QRS widening and repolarization abnormality ( R in aVL , [place] pr oduct , Romhilt-Amato ) Abnormal ECG When compared with ECG of 13-Nov-2023 10:02, Questionable change in initial forces of Anteroseptal leads Nonspecific T wave abnormality now evident in Inferior leads T wave inversion more evident in Lateral leads ST no longer elevated in Anteroseptal leads Confirmed by Ernst Ashton ([id number]) on 08/28/2025 9:58:52 PM Referred By: REFERRED SELF Confirmed By: Ernst Ashton
[2025-08-29 06:33] LABS: Hematocrit (blood only) 35.6 % (37.0-47.0); Hemoglobin 11.8 g/dl (12.0-16.0); Mean Corpuscular Hemoglobin 30.3 pg (25.0-34.0); Mean Corpuscular Volume 91.3 fL (80.0-100.0); Platelet Count 178 K/uL (130-400); RDW Standard Deviation 46.8 fL (36.4-46.3); Red Blood Count 3.90 M/uL (4.20-5.40); White Blood Count 8.51 K/ul (4.8-10.8)
[2025-08-29] MEDS ORDERED: LIDOCAINE 2% 2 ML VIAL/AMP(20MG/ML) INFIL ONE (06:48)
[2025-08-29] MEDS ORDERED: PROPOFOL IV EMULSION 10 MG/ML 20 ML VIAL IV ONE (06:48)
[2025-08-29] MEDS ORDERED: MIDAZOLAM HCL 1 MG/ML 2ML VIAL ONE (06:51)
[2025-08-29 06:52] LABS: Anion Gap 6.0 (3-11); Blood Urea Nitrogen 11.0 mg/dl (6-23); Calcium 8.3 mg/dl (8.6-10.3); Carbon Dioxide 24.0 mmol/L (21-32); Chloride 109.0 mmol/L (98-107); Creatinine Clr Calc Pharmacy 73.2 ml/min; Glucose 138.0 mg/dl (70-99(Fasting)); Magnesium 2.0 mg/dl (1.7-2.4); Potassium 4.1 mmol/L (3.5-5.1); Sodium 139.0 mmol/L (136-145)
--- NOTE | 2025-08-29 06:57 | History & Physical Bridge Note ---
Date of Service August 29, 2025 History & Physical Bridge Note I have examined the patient, reviewed the History & Physical and in the interval since the performance of the History & Physical I have noted the following changes of clinical significance: no changes noted
[2025-08-29] MEDS ORDERED: BUPIVACAINE 0.5 % 5 MG/1 ML PF 10ML VIAL ONE (06:58)
[2025-08-29] MEDS ORDERED: HYDROmorphone INJ 1 MG/ML SYRINGE IV PRN (07:19)
[2025-08-29] MEDS ORDERED: PROMETHAZINE HCL 6.25 MG in SODIUM CHLORIDE 0.9% 50 ML IV PRN (07:19)
[2025-08-29] MEDS ORDERED: KETOROLAC 30 MG/ML VIAL IV PRN (07:19)
[2025-08-29] MEDS ORDERED: ONDANSETRON INJ 2 MG/ML 2 ML VIAL IV PRN (07:19)
[2025-08-29] MEDS ORDERED: ATROPINE SULFATE 0.1 MG/ML 10ML SYR IV PRN (07:19)
[2025-08-29] MEDS ORDERED: ceFAZolin 330 MG/ML 1 GM VIAL ONE (07:58)
[2025-08-29] MEDS: TRANEXAMIC ACID / 0.7% NACL 1,000 MG/100 ML BAG IV ONE (07:58)
[2025-08-29] MEDS ORDERED: ePHEDrine sulfate 50 MG/5 ML SYR ONE (08:17)
[2025-08-29] MEDS ORDERED: ENOXAPARIN INJ 40 MG/0.4 ML SYR SQ SCH (09:00)
[2025-08-29] MEDS ORDERED: TRANEXAMIC ACID / 0.7% NACL 1000MG/100ML BAG IV ONE (09:23)
--- NOTE | 2025-08-29 09:55 | Operative Report ---
PG Post Operative Report Pre & Post Diagnosis Operation Date: 08/29/25 07:30 Pre-Op Diagnosis: Displaced fracture of femoral neck, right Post-Op Diagnosis: Displaced fracture of femoral neck, right I identified the patient and participated in the time-out.: Yes Procedure Operation Date: 08/29/25 07:30 Actual Procedures p Right Cemented Bipolar Hip(Right) - Omar Medel MD Surgeon Omar Medel MD Principal Clerk Typist Lucretia Baeza PA-C Estimated Blood Loss 200 Findings Consistent with Post-Op Diagnosis Specimens Right femoral head sent for pathology Anesthesia Type Spinal MAC Complications none Disposition Accompanied Patient To Recovery: No Indications Patient is an 80-year-old fairly active female whose has a history of knee replacement in the past. She sustained a mechanical fall at the [facility] yesterday. Acute onset of pain and unable to ambulate. She brought the emergency room x-rays revealed displaced femoral neck fracture. The patient was admitted by the hospitalist service, medically optimized, and indicated for surgical treatment. Description of Procedure Operative implants consist of: 1. De[place]uy [place] size 3 high offset cemented femoral stem. 2. 10.5 mm centralizer. 3. +1.5/28 mm head with a 48 mm bipolar shell and liner. 4. Small cement restrictor. The patient was taken to the op room, identified, placed on the operating table in the supine position. All contact areas were appropriately padded. IV antibiotics were provided by anesthesia team. A spinal anesthetic had been implemented in the holding area. The patient did receive 2 g of Ancef and 1 g of TXA. The patient was then placed in the left lateral decubitus position. An axillary roll was placed. A stool Birkett position was used for positioning. The right hip and leg were then scrubbed with Hibiclens, prepped with ChloraPrep and draped in usual sterile fashion. A posterior lateral approach of the right hip was then performed through a curvilinear incision centered over the greater trochanter. Sharp dissection was Through subcutaneous tissue down of the IT band gluteal fascia for the IT band gluteal fascia incised longitudinally in line with skin incision. She did have a significant hematoma which was evacuated. The piriformis and external rotators were taken off the posterior aspect hip joint capsule take great care to protect the sciatic nerve at all times. The posterior capsule was then incised and tagged on each side. Hip was internally rotated. A femoral neck osteotomy cut was made with a Final Cut about 10 mm above the lesser trochanter. Remaining femoral neck and femoral head were removed. I sized the acetabular size 48. The attention then drawn the femur. The proximal femur was entered with cookie-cutter followed by canal finder lateralizing reamer. I then broached begin the size 1 progressing up to 3. Good fit with a 3P I trialed the hip and we elect to use a +1.5 articular ball with a high offset stem in order to maximize her stability. We elected to place these implants. Soft tissue tension seemed appropriate and leg lengths seem equal. A small cement restrictor was placed on the IM canal. The canal was irrigated. A double batch [place] G cement was mixed. The canal was then injected. A size 3 high offset femoral stem was then placed and held until the cement hardened. A +1.5/28 mm articular ball with a 48 mm bipolar shell and liner were placed. Hip was located and once again found to be stable. Attention jointer closing. The wound was irrigated extensively. I did repair the posterior capsule with #2 Tycron suture in a [id number] fashion. The IT band gluteal fascia then closed in 1 PDS suture running fashion for subcutaneous tissue then closed with 3 layers with a deep layer #2 Vicryl suture, the middle layer with #1 Vicryl suture in the subcutaneous tissues with 2-0 Dexon suture in a buried interrupted fashion. Skin was then closed with skin lois. The leg was then cleaned and dried and a sterile dressing with Xeroform, 4 x 4's, ABD pad and foam tape was applied. The patient was then transferred to the recovery room in stable condition. Patient tolerated procedure well and there are no complications. Lucretia Baeza, my physician title i instructional assistant, was present for the entire procedure. Her assistance was required for proper patient positioning, prepping draping, surgical exposure, retraction, perform the technical details of the operation, placement of the implants, closure of the incision site, placement of postoperative sterile bandage. I attest to the content of the Intraoperative Record and any orders documented therein. Any exceptions are noted below.
--- NOTE | 2025-08-29 10:20 | Anesthesiology Progress Note ---
Date of Service August 29, 2025 Anesthesia Post Procedure Vital Signs Vital Signs: Temp Pulse Pulse Pulse Resp BP BP 08/29/25 10:05 70 70 H 124/65 08/29/25 09:55 74 16 123/58 L 08/29/25 09:48 36 C L 75 15 127/56 L 08/29/25 06:17 36.5 C 78 18 148/82 H 08/28/25 22:57 36.8 C 68 18 136/81 08/28/25 17:00 36.3 C L 69 16 179/97 H 08/28/25 16:26 08/28/25 16:15 99 H 20 190/98 H 08/28/25 16:00 61 18 182/97 H 08/28/25 15:00 53 L 26 H 119/64 08/28/25 14:55 51 L 22 144/93 H 08/28/25 14:30 57 L 20 156/85 H 08/28/25 13:30 59 L 13 173/92 H 08/28/25 12:30 63 13 171/95 H 08/28/25 12:16 64 12 166/96 H 08/28/25 11:02 68 08/28/25 11:00 64 14 178/98 H 08/28/25 10:56 36.6 C 68 18 168/105 H Pulse Ox O2 Del Method O2 Flow Rate 08/29/25 10:05 96 Room Air 08/29/25 09:55 97 Room Air 08/29/25 09:48 99 Oxymask 8 08/29/25 06:17 95 Room Air 08/28/25 22:57 94 Room Air 08/28/25 17:00 97 Room Air 08/28/25 16:26 Room Air 08/28/25 16:15 99 Room Air 08/28/25 16:00 99 Room Air 08/28/25 15:00 97 Room Air 08/28/25 14:55 97 Room Air 08/28/25 14:30 96 Room Air 08/28/25 13:30 99 Room Air 08/28/25 12:30 98 Room Air 08/28/25 12:16 98 Room Air 08/28/25 11:02 08/28/25 11:00 96 Room Air 08/28/25 10:56 97 Room Air Pain Intensity Right Hip: Pain Intensity: 7 Transfer of Care Handoff Completed per policy Notes Mental Status: alert / awake / arousable Patient Amnestic to Procedure: Yes Nausea / Vomiting: adequately controlled Pain: adequately controlled Airway Patency, RR, SpO2: stable & adequate BP & HR: stable & adequate Hydration State: stable & adequate Neuraxial Anesthesia: was administered and sensory block is resolving Anesthetic Complications: no major complications apparent
[2025-08-29] MEDS ORDERED: acetaZOLAMIDE 250 MG TAB PO PRN (11:10)
--- NOTE | 2025-08-29 11:34 | XRay Report ---
2 views of the pelvis and right hip are submitted for review. Comparison is made to the prior examination dated 02/03/2025 Findings: No fracture is seen. There is a new right hip bipolar arthroplasty. No other osseous abnormality is identified. There are no radiopaque foreign bodies. Calcifications within the pelvis likely represent phleboliths Impression: Right hip replacement Electronically signed by Dylon Rain 08-29-2025 11:33 AM
--- NOTE | 2025-08-29 13:54 | Hospitalist Progress Note ---
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 She presented after a ground-level fall while walking at the [facility] and tripping over a rock resulted in a right proximal femoral neck fracture. No head strike or LOC. She takes baby aspirin daily but is not on any other anticoagulation. She was admitted for management of her acute right proximal femoral neck fracture. #Acute right proximal femoral neck fracture - result of ground-level fall, tripped over a rock - Ortho consulted - S/p right cemented bipolar hip on 08/[address] Medel. Operative report notes 200 cc EBL. She was found to have a significant hematoma that was evacuated intraoperatively - Pain regimen: Scheduled Tylenol 1000 mg Q8H, morphine 4-6 mg IV Q3H PRN moderatesevere pain - PT/OT consulted - Vit D level low at 14.7 - start supplementation with cholecalciferol 25 mcg daily - Hgb decreased from 13.0 -> 11.8. Significant hematoma noted in OR, evacuated. Trend CBC with AM labs #HTN | HLD | Atherosclerosis BP currently elevated, suspect secondary to pain. Anticipate normalization of BP with improved pain control - Continue lisinopril 10 mg daily - Continue atorvastatin 10 mg QPM - Aspirin 81 mg daily at home, currently on BID dosing per ortho #GERD | Hiatal hernia - continue PPI #Mnire's disease - meclizine 25 mg TID PRN dizziness VTE PPx: Aspirin 81 mg BID per ortho Dispo: Pending PT/OT evaluations Daughter updated at bedside Admission and Anticipated Discharge Date Admission Date: August 28, 2025 Supervising Physician Co-Signing Physician Notes Attending Attestation: Chart reviewed, care plan d/w EARLINE Mendiola. I agree w/ the owens components of her documentation with the following addition -- * acute blood loss anemia Admit hemoglobin 13. Hemoglobin today 11.8. Recheck CBC in am - H/H likely to be lower in light of hematoma found during her operation, blood loss from surgery, etc. Dannie Araya MD Subjective Patient seen and evaluated at bedside with family present. She reports feeling well following her surgery earlier this morning. She reports she is starting to have mild pain in her lateral right hip. She well-tolerated her diet for lunch. She denies any headache, sore throat, nausea, abdominal pain, shortness of breath, chest pain. PT/OT have been consulted. No additional complaints or concerns at this time. Physical Exam Physical Exam: General: Mild acute distress secondary to pain, nondiaphoretic, well-developed, well-nourished. Skin: Warm, dry. No rashes or peripheral edema noted. Superficial abrasion to right elbow. Cardiac: Regular rate and rhythm without murmurs gallops or rubs. Pulm: Clear to auscultation bilaterally without wheezes, rales or rhonchi. Normal respiratory effort. 98% on room air. Abdominal: Soft, nontender, nondistended. Bowel sounds present. Extremities: Right LE with dressing over right hip, clean dry intact. Able to wiggle toes. Neurovascularly intact in LE bilaterally. Neuro: A&O x3. No focal neurological deficits. Results & Data Results & Data Vital Signs (Past 12 Hours) Vital Signs Temp Pulse Pulse Pulse Resp BP Pulse Ox 08/29/25 10:45 98.1 F 76 16 147/72 H 99 08/29/25 10:30 75 14 131/65 96 08/29/25 10:15 97.7 F 69 16 135/64 94 08/29/25 10:05 70 17 124/65 96 08/29/25 09:55 74 16 123/58 L 97 08/29/25 09:48 96.8 F L 75 15 127/56 L 99 08/29/25 06:17 97.7 F 78 18 148/82 H 95 O2 Del Method O2 Flow Rate 08/29/25 10:45 Room Air 08/29/25 10:30 Nasal Cannula 2 08/29/25 10:15 Room Air 08/29/25 10:05 Room Air 08/29/25 09:55 Room Air 08/29/25 09:48 Oxymask 8 08/29/25 06:17 Room Air Laboratory Results Reviewed CBC Reviewed BMP/chemistries PG Care Time/CCT Total # of Minutes Spent Total Time Spent with Patient: Total time spent is greater than 50% in coordination of care (as documented) at patient's floor/unit and/or counseling patient: Coding Level of Care Code 56081 SUB INP/OBS CARE 2/35MIN Diagnoses Closed fracture of neck of right femur, initial encounter S72.001A Encounter type: initial encounter Fracture type: closed Acute pain of right hip M25.551 Fall, initial encounter W19.XXXA Encounter type: initial encounter Dyslipidemia E78.5 Primary hypertension I10 Hypertension type: primary hypertension 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
[2025-08-29] MEDS: BUPIVACAINE/EPINEPHRINE 0.5% MPF 1:200,000 30 ML VIAL ONE (14:32)
[2025-08-29] MEDS ORDERED: MoRPHine SULFATE 2 MG/ML CARP IV PRN (17:40)
[2025-08-29] MEDS: MoRPHine SULFATE 4 MG/ML 1 ML CARP\\VIAL ONE (18:55)
[2025-08-29] MEDS: ONDANSETRON INJ 2 MG/ML 2 ML VIAL IV PRN (20:10)
[2025-08-29] MEDS: HYDROmorphone INJ 1 MG/ML SYRINGE IV STA (21:17)
[2025-08-29] MEDS: ASPIRIN 81 MG ECTAB PO SCH (21:22)
--- NOTE | 2025-08-30 07:05 | Orthopedic Progress Note ---
Date of Service August 30, 2025 Assessment & Plan (1) Fracture of femoral neck, right: Plan: 80-year-old female postop day 1 from right cemented bipolar hip arthroplasty for fracture doing reasonably well. Pain is reasonably well-controlled. Hip is located. She is neurologically intact. Plan: 1. DVT prophylaxis including thigh-high teds, SCDs, aspirin twice a day. 2. PT/OT. She can fully weight-bear as tolerated. Needs to obey hip precautions. 3. Pain control. Doing okay with current pain regimen. 4. Medical management. As per the medicine service. 5. Disposition. She is orthopedically okay for discharge at any time medically stable. Plan: Need a rehab by/care home facility stay. (2) Fall: Admission and Anticipated Discharge Date Admission Date: August 28, 2025 Subjective 80-year-old female now postop day 1 from right cemented bipolar hip arthroplasty for fracture. She is doing okay this morning. No new complaints. Having some right hip pain and soreness. No chest pain or shortness of breath. Anxious to start getting up and out of bed. Physical Exam Physical Exam: Physical examination is a pleasant elderly female. She is lying in bed. She is awake alert and oriented. Examination of the right hip reveals the leg to be well aligned. Dressings clean dry and intact. Leg lengths are equal. Thigh is soft and supple. She is neurologically intact. Results & Data Vital Signs (Past 12 Hours) Vital Signs Temp Pulse Resp BP Pulse Ox O2 Del Method O2 Flow Rate 08/30/25 04:05 37.4 C 72 14 138/73 95 Nasal Cannula 2 08/29/25 23:33 37.2 C 74 16 127/71 95 Nasal Cannula 3 08/29/25 21:35 Nasal Cannula 3 08/29/25 19:43 38.5 C H 79 18 169/97 H 94 Room Air 3 Laboratory Results Labs are pending. (1) Fracture of femoral neck, right Encounter type: initial encounter Fracture type: closed Qualified Code(s): S72.001A - Fracture of unspecified part of neck of right femur, initial encounter for closed fracture (2) Fall Encounter type: initial encounter Qualified Code(s): W19.XXXA - Unspecified fall, initial encounter
[2025-08-30 07:08] LABS: Hematocrit (blood only) 32.8 % (37.0-47.0); Hemoglobin 10.9 g/dl (12.0-16.0); Immature Granulocytes # (auto) 0.05 K/uL (0.01-0.20); Immature Granulocytes % (auto) 0.5 %; Mean Corpuscular Hemoglobin 30.4 pg (25.0-34.0); Mean Corpuscular Volume 91.4 fL (80.0-100.0); Platelet Count 143 K/uL (130-400); RDW Standard Deviation 46.9 fL (36.4-46.3); Red Blood Count 3.59 M/uL (4.20-5.40); White Blood Count 10.85 K/ul (4.8-10.8)
[2025-08-30 07:31] LABS: Anion Gap 7.0 (3-11); Blood Urea Nitrogen 10.0 mg/dl (6-23); Calcium 8.3 mg/dl (8.6-10.3); Carbon Dioxide 25.0 mmol/L (21-32); Chloride 106.0 mmol/L (98-107); Creatinine Clr Calc Pharmacy 82.2 ml/min; Glucose 124.0 mg/dl (70-99(Fasting)); Potassium 4.1 mmol/L (3.5-5.1); Sodium 138.0 mmol/L (136-145)
[2025-08-30] MEDS: CHOLECALCIFEROL 25 MCG (1000 UNITS) TAB PO SCH (09:22)
[2025-08-30] MEDS: MECLIZINE HCL 25 MG TAB PO PRN (10:33)
[2025-08-30 11:05] LABS: Prealbumin 12.0 mg/dl (20-40)
[2025-08-30] MEDS ORDERED: MoRPHine SULFATE 2 MG/ML CARP IV PRN (13:46)
[2025-08-30] MEDS ORDERED: ACETAMINOPHEN 325 MG TAB PO PRN ×2 (13:53→18:00)
--- NOTE | 2025-08-30 14:52 | Hospitalist Progress Note ---
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 She presented after a ground-level fall while walking at the [facility] and tripping over a rock resulted in a right proximal femoral neck fracture. No head strike or LOC. She takes baby aspirin daily but is not on any other anticoagulation. She was admitted for management of her acute right proximal femoral neck fracture. #Acute right proximal femoral neck fracture - result of ground-level fall, tripped over a rock - Ortho consulted - S/p right cemented bipolar hip on 08/[address] Medel. Operative report notes 200 cc EBL. She was found to have a significant hematoma that was evacuated intraoperatively - Pain regimen: Tylenol PRN mild pain/fever, oxycodone 5-10 mg Q4H PRN moderate- severe pain, morphine 4 mg IV Q3H PRN breakthrough pain - PT/OT recommending rehab - Vit D level low at 14.7 - started supplementation with cholecalciferol 25 mcg daily - continue - Mild acute blood loss anemia. Likely multifactorial between fracture resulting in hematoma and surgical intervention. Hgb stable at 10.9 today 08/30. No signs of ongoing bleeding. Continue to trend #HTN | HLD | Atherosclerosis - Continue lisinopril 10 mg daily - Continue atorvastatin 10 mg QPM - Aspirin 81 mg daily at home, currently on BID dosing per ortho #GERD | Hiatal hernia - continue PPI #Mnire's disease - meclizine 25 mg TID PRN dizziness VTE PPx: Thigh-high teds, SCDs, aspirin 81 mg BID per ortho Dispo: Medically stable for discharge. Awaiting rehab placement. Adjusted pain regimen Admission and Anticipated Discharge Date Admission Date: August 28, 2025 Supervising Physician Co-Signing Physician Notes Attending Attestation: Chart reviewed, care plan d/w EARLINE Mendiola. I agree w/ the owens components of her documentation with the following additions -- * acute blood loss anemia * vitamin D deficiency Admit hemoglobin 13. Hemoglobin today 10.9. 25-OH vit D level = 14.7. Dannie Araya MD Subjective Patient seen and evaluated at bedside. She reports working with therapy this morning. We discussed the recommendation of rehab, she is agreeable. She reports her pain is well-controlled at this time. We discussed the adjustments made to her pain regimen. She has a good appetite and is well tolerating her diet. She is sleeping fairly well overnight. She denies any acute complaints or concerns at this time. Physical Exam Physical Exam: General: Mild acute distress secondary to pain, nondiaphoretic, well-developed, well-nourished. Skin: Warm, dry. No rashes or peripheral edema noted. Superficial abrasion to right elbow. Cardiac: Regular rate and rhythm without murmurs gallops or rubs. Pulm: Clear to auscultation bilaterally without wheezes, rales or rhonchi. Normal respiratory effort. 96% on room air. Abdominal: Soft, nontender, nondistended. Bowel sounds present. Extremities: Right LE with dressing over right hip, clean dry intact. Neurovascularly intact in LE bilaterally. Neuro: A&O x3. No focal neurological deficits. Results & Data Results & Data Vital Signs (Past 12 Hours) Vital Signs Temp Pulse Resp BP Pulse Ox O2 Del Method O2 Flow Rate 08/30/25 11:34 96 08/30/25 07:04 98.6 F 76 16 151/78 H 93 Room Air 08/30/25 04:05 99.3 F 72 14 138/73 95 Nasal Cannula 2 Laboratory Results Reviewed CBC with differential Reviewed BMP PG Care Time/CCT Total # of Minutes Spent Total Time Spent with Patient: Total time spent is greater than 50% in coordination of care (as documented) at patient's floor/unit and/or counseling patient: Coding Level of Care Code 36611 SUB INP/OBS CARE 3/50MIN Diagnoses Closed fracture of neck of right femur, initial encounter S72.001A Encounter type: initial encounter Fracture type: closed Acute pain of right hip M25.551 Fall, initial encounter W19.XXXA Encounter type: initial encounter Dyslipidemia E78.5 Primary hypertension I10 Hypertension type: primary hypertension 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
[2025-08-31 06:21] LABS: Hematocrit (blood only) 32.3 % (37.0-47.0); Hemoglobin 10.3 g/dl (12.0-16.0); Mean Corpuscular Hemoglobin 29.3 pg (25.0-34.0); Mean Corpuscular Volume 91.8 fL (80.0-100.0); Platelet Count 130 K/uL (130-400); RDW Standard Deviation 47.4 fL (36.4-46.3); Red Blood Count 3.52 M/uL (4.20-5.40); White Blood Count 11.11 K/ul (4.8-10.8)
[2025-08-31 07:54] VITALS: RESP 16; TEMP 99
--- NOTE | 2025-08-31 07:54 | Orthopedic Progress Note ---
Date of Service August 31, 2025 Assessment & Plan (1) Fracture of femoral neck, right: * Continue Current Treatment * S/p right hip hemiarthroplasty * Weight bearing status: WBAT with hip precautions * Daily treatment: Physical Therapy/ Occupational Therapy per protocol * Pain control * Continue to monitor for ABLA * DVT prophylaxis, ok to resume from ortho standpoint * Disposition: Rehab * Office/hospital f/u 2 weeks for progress check and staple/suture removal * Remainder care per primary team Subjective . Active Problems: S/p right hip hemiarthroplasty POD 2 80 y/o female s/p right hip hemiarthroplasty. Doing well overall, pain managed and improved function. Orthostatic hypotension yesterday while out of bed. Denies fever/chills, chest pain/SOB, nausea/vomiting. Otherwise no complaints. Review of Systems All systems reviewed & are unremarkable except as noted in HPI & below. Physical Exam . * General: Alert and oriented, no acute distress * Constitutional: well-developed, well-nourished. * Respiratory: Normal respiratory effort, no distress * Gastrointestinal: No tenderness to palpation, no rigidity or guarding. * Skin: No rash or lesion. * Neurologic: Grossly normal * Musculoskeletal: Right hip surgical dressing CDI, not removed for exam. Otherwise no obvious deformity or overlying skin changes. Diffuse TTP proximal thigh and hip region. Otherwise no specific tenderness of distal thigh, lower leg, foot/ankle. AROM hip flexion intact. AROM foot/ankle intact. Sensation intact plantar/dorsal foot. Brisk capillary refill. Results & Data Results & Data Laboratory Results . Diagnostic Findings . PG Care Time/CCT Total # of Minutes Spent Total Time Spent with Patient: Total time spent is greater than 50% in coordination of care (as documented) at patient's floor/unit and/or counseling patient: Coding Level of Care Code 62330 Post Operative Follow-Up Diagnoses Closed fracture of neck of right femur, initial encounter S72.001A Encounter type: initial encounter Fracture type: closed (1) Fracture of femoral neck, right Encounter type: initial encounter Fracture type: closed Qualified Code(s): S72.001A - Fracture of unspecified part of neck of right femur, initial encounter for closed fracture
[2025-08-31] MEDS: CHOLECALCIFEROL 125 MCG (5,000 UNITS) TAB PO SCH (07:59)
--- NOTE | 2025-08-31 09:12 | XRay Report ---
XR chest 1V portable CLINICAL HISTORY: post op fever, hypoxia COMPARISON STUDY: 08/28/2025 FINDINGS: Stable moderate hiatal hernia. Stable moderate cardiomegaly with mild pulmonary vascular co ngestion. No consolidation or pleural effusion. There is mild stranding opacity at the left lung base . No pneumothorax. IMPRESSION: 1. Mild CHF. 2. Mild atelectasis versus early pneumonia left lung base. ACT 112: Negative or not required by law. Electronically signed by: Bhavik Bellamy M.D. 08/31/2025 9:11 AM
[2025-08-31] MEDS: ACETAMINOPHEN 325 MG TAB PO PRN (11:24)
[2025-08-31] MEDS: LACTATED RINGER'S 500 ML IV ONE (11:38)
--- NOTE | 2025-08-31 11:44 | Discharge Summary ---
Discharge Summary Date of Service August 31, 2025 Principal Dx & Hospital Course #1 = Principal Diagnosis (1) Fracture of femoral neck, right: (2) Acute pain of right hip: (3) Fall: (4) Dyslipidemia: (5) Hypertension: Plan #Acute right proximal femoral neck fracture Anuradha is a pleasant 80-year-old woman with past medical history of hyperlipidemia, GERD, hiatal hernia, vitamin D deficiency, hypertension, Mni re's disease, atherosclerosis. She presented after [facility] and tripping [facility] rock resulted in a right proximal femoral neck fracture. No head strike or LOC. Ortho consulted - S/p right cemented bipolar hip on 08/[address] Medel. Operative report notes 200 cc EBL. She was found to have a significant hematoma that was evacuated intraoperatively. Vit D level low - started PO supplementation. Mild acute blood loss anemia. Likely multifactorial between fracture resulting in hematoma and surgical intervention. Hgb stable at 10.9 08/30. No signs of ongoing bleeding. Pain not well controlled - pt has not wanting to take medications. PT/OT rec rehab - to [facility] today Stil requiring alittle O2 post OP - CXR showing atelectasis. Continue incentive spirometer. #HTN | HLD | Atherosclerosis - contninue statin, ASA increased to BID per ortho. With orthostatic hypotension during PT lisinopril has been held #GERD | Hiatal hernia - continue PPI #Mnire's disease - meclizine 25 mg TID PRN dizziness VTE PPx: Thigh-high teds, SCDs, aspirin 81 mg BID per ortho Dispo: discharge to [facility] today Admission HPI Per Admitting Provider Anuradha is a pleasant 80-year-old woman with past medical history of hyperlipidemia, GERD, hiatal hernia, vitamin D deficiency, hypertension, Mnire's disease, atherosclerosis. She presented via EMS after she experienced a ground-level fall. At the time of my exam, the patient was lying in bed in mild distress secondary to pain. Daughter present at bedside. Patient states [facility] and [facility] which caused her to fall and she subsequently landed on her right hip. She also has abrasions to her right arm/elbow related to this fall. She denies head strike or loss of consciousness. She takes baby aspirin daily but does not take blood thinners or other anticoagulation. Currently she reports right sided hip pain most prominent in her groin, but also starting to radiate distally down her right LE to her knee. She denies any head, neck, back pain. She reports following with cardiology for her dyslipidemia, hiatal hernia, and dyspnea on exertion. She notes her LACEY has improved with increased exercise recently. She denies any angina, lightheadedness/dizziness, heart palpitations, dyspnea at rest, or history of significant valvular pathologies. Patient reports that she took her regular morning medications today; only recent medication change was the addition of lisinopril 3 months ago for treatment of hypertension. She does not use supplemental oxygen at baseline. No CPAP at night. Vitals on admission significant for elevated BP at 166/96; vitals otherwise stable. Labs on admission are overall unremarkable. CBC with differential completely WNL. Coagulation studies WNL. Electrolytes WNL. Renal function WNL. LFTs WNL. Right hip/pelvis x-ray on admission reveals acute proximal right femoral neck fracture. CXR with no acute processes of the chest. We discussed code status, patient wishes to be a full code. Discharge Exam General: NAD, VS as above Resp: normal respiratory effort, lungs diminished in the bases CV: RRR, no murmur, Abd: normal bowel sounds, non tender, soft Extremities: Moves all extremities, no edema - right hip dressing c/d/i Neuro: A&O x3, Skin: intact, no lesions noted Discharge Plan Discharge Items Patient Disposition: Transfer Inpatient Rehab Fac Reason For Visit: ACUTE RIGHT FEMUR FX Discharge Diagnosis: Right Hip Arthroplasty for Fracture Condition on Discharge: Fair Activity: Per Instructions section Activity Comment: Follow/Obey hip precautions at all times Weightbearing: Full weightbearing Weightbearing Comment: Weightbear as tolerated obeying hip precautions at all times. Non-emergency contact: Surgeon Call non-emergency contact if: your symptoms worsen, your temperature is above 101.5, your wound has increased redness and your wound has increased drainage Follow-up/Referrals: Renee Becerra MD [Primary Care Provider] - (Follow-up after [facility] from [facility]) Omar Medel MD [Physician] - (Orthopedic follow-up 2-3 weeks from surgery date.) Diet: Heart Healthy Addtl Attending Provider Instructions: Mrs. Roberston you were hospitalized after a fall that resulted in a hip fracture. This was repaired on 08/[address] Medel. Postoperatively you have struggled with pain, I would recommend taking Tylenol even if you do not feel pain and then you can have breakthrough pain medication as needed. You are also found to have a low vitamin D level and started on vitamin D supplementation daily. Concern for orthostasis with physical therapy on 08/31blood pressure rebounded quickly when patient got back into bed. Question if pain is contributing, would recommend holding your losartan until your pain is more controlled and you are able to move around better. DVT prophylaxis 81 mg twice a day per Ortho For [facility]: Poor pain control while inpatient but not wanting to take a lot of pain medications Orthostatic 08/31 recommend lisinopril held until this resolves. Suspect orthostasis exacerbated by pain Low-grade fever overnight 08/30, chest x-ray showing atelectasis. Encourage incentive spirometer. She was not giving Tylenol and the fever resolved. no bowel movement since surgery. Instructions from orthopedics are below. Please follow-up with your PCP after discharge from rehab ACTIVITY RECOMMENDATIONS: Diet: * You may resume previous diet. Physical Therapy: * Aggressive physical therapy is not usually needed. You will learn to take care of yourself safely and walk. * Follow the "Hip Precautions Instructions." * In some cases, the criminal justice social worker at the hospital will arrange to have a therapist come to your house for the first couple of weeks to help you learn these skills. * You need to practice on your own or with the help of a family member as needed. * When you learn these skills, most of the therapy can be done on your own. Home Exercise: * You were shown a series of exercises in the hospital. Do these exercises three to four times each day including the exercises you were shown in physical therapy. Walking: * Get up and walk several times each day. For the first four weeks, try not to stand or walk for more than one hour at a time. If you do stand or walk for more than one hour, you will not hurt anything, but your leg will likely swell. * As you feel comfortable, you may change from the walker or crutches to a cane and then to independent walking. MEDICATIONS: New Medicine: * You will likely be taking one or more of these medicines: 1. Tramadol - Take, as directed, when you need it, every six hours to control your pain. 2. Aspirin - Thins your blood to lessen the chance of forming a blood clot. * The most common side effects of pain medicine and iron are nausea and constipation. If nausea or constipation is too much of a problem or if you have any questi ons about your new medicines or doses, call [facility] at . We will try to help you manage these issues. "VERY IMPORTANT TO READ AND REVIEW" Pain: * The immediate post-operative period after hip replacement surgery is often quite painful. * You are given a prescription for pain medicine. You should take it, as directed, when you need it, especially before physical therapy and before going to bed. Pain that interferes with sleep is very common and can last several months. * You will likely need pain medicine for the first two to four weeks. It will not stop all of the pain. The pain will lessen and as you feel better, you may change to milder pain medicine such as Tylenol. * The most common side effects of pain medicine are nausea and constipation, so don't take more than you need. SPECIAL CARE INSTRUCTIONS: TEDs/Elastic Stockings: * The white elastic stockings help limit swelling and prevent blood clots from forming in your legs. The more you wear them, the more they work. * Wear them for six weeks. Incision Site Care: * Remove dressing postoperative day 2 and then shower. Keep direct shower pressure off the incision site. * After showering, cover lois with dry gauze and change daily or more frequently if the dressing is getting saturated with drainage. * May completely stop using bandage if wound is dry and no drainage * Franklin are removed between 2 and 3 weeks post-op. If your follow-up appointment is made before 2 weeks, please have your appointment re- scheduled. It is too early to remove the lois. Prevention of Infection: * Take antibiotics one hour before any dental cleaning, dental work, urological procedure, gastrointestinal procedure or any invasive surgery in order to prevent your new joint from getting infected. * You may get the antibiotics from the doctor performing the procedure or you may call our office at before and we will call in a prescription to the pharmacy of your choice. Things to Watch For: * Drainage from the incision site that occurs more than one week after your surgery. * Severely increased leg pain or swelling. * Increased redness at the incision site. * Fever above 102 degrees Fahrenheit. * Unusual chest pain or shortness of breath. * Unusual pain or burning with urination. Call [facility] at with any of the above problems or if you have any questions about your medicines or recovery. FOLLOW UP VISIT: Make an appointment to see your doctor for approximately two weeks after surgery for a progress check and staple removal by calling the office at . Pending Studies at Discharge: No Stand-Alone Forms: My [facility] Skilled Items Patient informed of condition?: No DNR: No Discharge Level of Care: Acute rehab Communicable Disease: No Discharge Prognosis: Stable Lines: None Urinary Catheter: No Medications and DC Order Prescriptions: New aspirin 81 mg Tablet,Delayed Release (Dr/Ec) 81 mg PO BID 30 Days Qty: 60 0RF polyethylene glycol 3350 [Miralax] 17 gram Powder In Packet 17 g PO Q6 2 Days Qty: 14 0RF cholecalciferol (vitamin D3) 125 mcg (5,000 unit) Tablet 125 mcg PO QAM Qty: 30 0RF Continued meclizine 25 mg tablet 25 mg PO TID PRN (Reason: dizziness) Qty: 30 1RF Patient Comments: 08/28- otc/no fill history unable to verify atorvastatin 10 mg tablet 10 mg PO QPM Qty: 90 3RF Rx Instructions: TAKE 1 TABLET BY MOUTH EVERY DAY calcium carbonate-vitamin D3 600-125 mg-unit tablet 0 tab PO DAILY Patient Comments: 08/28- otc unable to verify amoxicillin 500 mg tablet 2,000 mg PO UD PRN (Reason: PRIOR TO DENTAL ) Rx Instructions: 4 tabs 1 hour prior to procedure acetazolamide 250 mg tablet 125 - 250 mg PO DAILY PRN (Reason: Other) Rx Instructions: 1/2 - 1 tab PO daily PRN menieres omeprazole 20 mg capsule,delayed release(DR/EC) 20 mg PO DAILY Rx Instructions: TAKE 1 CAPSULE BY MOUTH EVERY MORNING diazepam 5 mg tablet 0 mg PO BID PRN (Reason: vertigo ) Patient Comments: 08/28- no fill history unable to verify Rx Instructions: ongoing therapy Supervising physician Leonard Suarez MD [id number] Held lisinopril 10 mg tablet 10 mg PO DAILY Qty: 90 1RF Hold Instructions: Provider's Order aspirin 81 mg tablet,delayed release (DR/EC) 81 mg PO DAILY Qty: 90 3RF Hold Instructions: Provider's Order Patient Comments: 08/28- otc unable to verify Discharge Orders: Discharge Order (Routine); Ordered 08/31/25 Ordered By: Enid Linn Admission Data Admit Date/Time: 08/28/25 13:17 Attending Provider: Dannie Araya Admit Provider: Dannie Araya Primary Care Provider: Renee Becerra Other Providers: Dannie Araya; Omar Medel Hospital Stay Data Consultations 08/28/25 13:24 ED Decision to Admit Stat 08/28/25 17:32 Consult Orthopedic Surgery Routine Procedures Performed Operation Date: 08/29/25 07:30 Actual Procedures p Right Cemented Bipolar Hip(Right) - Omar Medel MD Diagnostic Imagining Performed Hip/Pelvis X-Ray 08/28/25 11:02 XR hip RT 2V w pelvis CLINICAL HISTORY: trauma, right hip pain COMPARISON: None FINDINGS: There is an acute oblique fracture of the proximal right femoral neck. There is no dislocation. IMPRESSION: Acute proximal right femoral neck fracture. ACT 112: Negative or not required by law. Electronically signed by: Edouard Kunz M.D. 08/28/2025 12:12 PM Chest X-Ray 08/28/25 12:51 XR chest 1V portable HISTORY: 80 years-old Female preop baseline preoperative exam COMPARISON: 02/09/2025 TECHNIQUE: AP view of the chest FINDINGS: Cardiac silhouette is mildly enlarged. Probable hiatal hernia. No pneumothorax, pleural effusion, airspace consolidation or overt pulmonary edema. Degenerative changes of the shoulders and spine. IMPRESSION: No acute processes of the chest. ACT 112: Negative or not required by law. The above report was generated using voice recognition software. It may contain grammatical, syntax or spelling errors. Electronically signed by: Tino Hanna M.D. 08/28/2025 1:26 PM Hip/Pelvis X-Ray 08/29/25 10:55 2 views of the pelvis and right hip are submitted for review. Comparison is made to the prior examination dated 02/03/2025 Findings: No fracture is seen. There is a new right hip bipolar arthroplasty. No other osseous abnormality is identified. There are no radiopaque foreign bodies. Calcifications within the pelvis likely represent phleboliths Impression: Right hip replacement Electronically signed by Dylon Rain 08-29-2025 11:33 AM Chest X-Ray 08/31/25 08:31 XR chest 1V portable CLINICAL HISTORY: post op fever, hypoxia COMPARISON STUDY: 08/28/2025 FINDINGS: Stable moderate hiatal hernia. Stable moderate cardiomegaly with mild pulmonary vascular congestion. No consolidation or pleural effusion. There is mild stranding opacity at the left lung base. No pneumothorax. IMPRESSION: 1. Mild CHF. 2. Mild atelectasis versus early pneumonia left lung base. ACT 112: Negative or not required by law. Electronically signed by: Bhavik Bellamy M.D. 08/31/2025 9:11 AM Pending Results Patient Have Any Pending Studies at Discharge: No Discharge Instructions Given to Patient (Per Discharging Provider) Mrs. Nestor mcqueen were hospitalized after a fall that resulted in a hip fracture. This was repaired on 08/[address] Medel. Postoperatively you have struggled with pain, I would recommend taking Tylenol even if you do not feel pain and then you can have breakthrough pain medication as needed. You are also found to have a low vitamin D level and started on vitamin D supplementation daily. Concern for orthostasis with physical therapy on 08/31blood pressure rebounded quickly when patient got back into bed. Question if pain is contributing, would recommend holding your losartan until your pain is more controlled and you are able to move around better. DVT prophylaxis 81 mg twice a day per Ortho [facility]: Poor pain control while inpatient but not wanting to take a lot of pain medications Orthostatic 08/31 recommend lisinopril held until this resolves. Suspect orthostasis exacerbated by pain Low-grade fever overnight 08/30, chest x-ray showing atelectasis. Encourage incentive spirometer. She was not giving Tylenol and the fever resolved. no bowel movement since surgery. Instructions from orthopedics are below. Please follow-up with your PCP after discharge from rehab ACTIVITY RECOMMENDATIONS: Diet: * You may resume previous diet. Physical Therapy: * Aggressive physical therapy is not usually needed. You will learn to take care of yourself safely and walk. * Follow the "Hip Precautions Instructions." * In some cases, the criminal justice social worker at the hospital will arrange to have a therapist come to your house for the first couple of weeks to help you learn these skills. * You need to practice on your own or with the help of a family member as needed. * When you learn these skills, most of the therapy can be done on your own. Home Exercise: * You were shown a series of exercises in the hospital. Do these exercises three to four times each day including the exercises you were shown in physical therapy. Walking: * Get up and walk several times each day. For the first four weeks, try not to stand or walk for more than one hour at a time. If you do stand or walk for more than one hour, you will not hurt anything, but your leg will likely swell. * As you feel comfortable, you may change from the walker or crutches to a cane and then to independent walking. MEDICATIONS: New Medicine: * You will likely be taking one or more of these medicines: 1. Tramadol - Take, as directed, when you need it, every six hours to control your pain. 2. Aspirin - Thins your blood to lessen the chance of forming a blood clot. * The most common side effects of pain medicine and iron are nausea and constipation. If nausea or constipation is too much of a problem or if you have any questions about your new medicines or doses, call [facility] at . We will try to help you manage these issues. "VERY IMPORTANT TO READ AND REVIEW" Pain: * The immediate post-operative period after hip replacement surgery is often quite painful. * You are given a prescription for pain medicine. You should take it, as directed, when you need it, especially before physical therapy and before going to bed. Pain that interferes with sleep is very common and can last several months. * You will likely need pain medicine for the first two to four weeks. It will not stop all of the pain. The pain will lessen and as you feel better, you may change to milder pain medicine such as Tylenol. * The most common side effects of pain medicine are nausea and constipation, so don't take more than you need. SPECIAL CARE INSTRUCTIONS: TEDs/Elastic Stockings: * The white elastic stockings help limit swelling and prevent blood clots from forming in your legs. The more you wear them, the more they work. * Wear them for six weeks. Incision Site Care: * Remove dressing postoperative day 2 and then shower. Keep direct shower pressure off the incision site. * After showering, cover lois with dry gauze and change daily or more frequently if the dressing is getting saturated with drainage. * May completely stop using bandage if wound is dry and no drainage * Lois are removed between 2 and 3 weeks post-op. If your follow-up appointment is made before 2 weeks, please have your appointment re- scheduled. It is too early to remove the lois. Prevention of Infection: * Take antibiotics one hour before any dental cleaning, dental work, urological procedure, gastrointestinal procedure or any invasive surgery in order to prevent your new joint from getting infected. * You may get the antibiotics from the doctor performing the procedure or you may call our office at before and we will call in a prescription to the pharmacy of your choice. Things to Watch For: * Drainage from the incision site that occurs more than one week after your surgery. * Severely increased leg pain or swelling. * Increased redness at the incision site. * Fever above 102 degrees Fahrenheit. * Unusual chest pain or shortness of breath. * Unusual pain or burning with urination. Call [facility] at with any of the above problems or if you have any questions about your medicines or recovery. FOLLOW UP VISIT: Make an appointment to see your doctor for approximately two weeks after surgery for a progress check and staple removal by calling the office at . Total Time Total Time Spent Total Time Spent (In Minutes): Time spent day of discharge 35 minutes including direct patient care, medication reconciliation, documentation, review of labs and images, and coordination of care. case discussed with cm Coding Level of Care Code 50812 INP/OBS DISCH >30 MIN Diagnoses Closed fracture of neck of right femur, initial encounter S72.001A Encounter type: initial encounter Fracture type: closed Acute pain of right hip M25.551 Fall, initial encounter W19.XXXA Encounter type: initial encounter Dyslipidemia E78.5 Primary hypertension I10 Hypertension type: primary hypertension
[2025-08-31] MEDS: POLYETHYLENE (MIRALAX) 17 GM PACK PO SCH (13:04)
[2025-08-31] MEDS: LACTATED RINGER'S 1,000 ML IV ONE (13:37)
[2025-08-31 14:50] VITALS: BP 105/64; PULSE 65; O2SAT 96
== END 2025-08-31 15:37 | DRG 522 ==
LOC: SUATTDRO → ED 10:49 → 3E 13:17